=== PATIENT | male | born 1960 | race Caucasian/White ===

== ENCOUNTER → 2022-07-02 | Outpatient (CLI) | payer OTHER | END | disposition home or self-care (01) | LOC: LAB 09:50 → LAB SHORT 09:50 | DX: L08.9 Local infection of the skin and subcutaneous tissue, unspecified (principal) | CPT/HCPCS: 87070; 87075; 87147; 87205 ==

== ENCOUNTER 2024-05-22 03:10 | Inpatient (IN) | payer OTHER ==
[2024-05-22] VITALS (41 sets, daily range): BP systolic 71–99; BP diastolic 51–78
[~2024-05-22] VITALS: Ht 167.6 cm; Wt 62.5 kg
[2024-05-22] MEDS ORDERED: Ipratropium/Albuterol SulF 2.5-0.5MG/3 ML Amp INH PRN (03:55)
[2024-05-22 04:04] LABS: Hematocrit 40.6 % (37.0-53.0); Hemoglobin 13.5 g/dL (13.5-17.5); Mean Corpuscular HGB 29.3 pg (26.0-34.0); Mean Corpuscular HGB Conc 33.3 g/dL (31.5-36.5); Mean Corpuscular Volume 88 fL (80-100); Mean Platelet Volume 10.1 fL (9.1-12.4); NRBC ABSOLUTE 0.02 K/mm3 (0.00-0.02); NRBC Auto 0.1 /100 WBC (0.0-0.2); Platelet Count 331 K/mm3 (150-400); RDW Coefficient Variation 14.5 % (11.7-14.2); RDW Standard Deviation 46.3 fL (35.1-46.3); White Blood Cell Count 29.56 K/mm3 (4.00-11.30)
[2024-05-22] MEDS ORDERED: NS 1,000 ML IV SCH ×2 (04:15→15:40)
[2024-05-22 04:19] LABS: Albumin, Blood 2.2 g/dL (3.4-5.0); Albumin/Globulin Ratio 0.4 (0.8-1.8); Bilirubin, Total 0.8 mg/dL (0.1-1.0); Bun/Creatinine Ratio 23.9 (12.0-20.0); Calcium, Blood 9.3 mg/dL (8.5-10.1); Creatinine, Blood 2.18 mg/dL (0.60-1.20); Globulin, Blood 4.9 g/dL (2.2-4.0); Potassium, Blood 3.5 mmol/L (3.5-5.5); Total Protein, Blood 7.1 g/dL (6.4-8.2)
[2024-05-22 04:24] LABS: BAND PERCENT MAN 34 % (0-8); BASOPHILS PERCENT MAN 0 % (0-2); EOSINOPHILS ABSOLUTE MAN 0.29 K/mm3 (0.00-0.68); EOSINOPHILS PERCENT MAN 1 % (0-6); LYMPHOCYTES ABSOLUTE MAN 1.47 K/mm3 (0.84-5.20); LYMPHOCYTES PERCENT MAN 5 % (21-46); METAMYELOCYTE ABSOLUTE MAN 0.29 K/mm3 (0.00-0.00); METAMYELOCYTE PERCENT MAN 1 % (0-0); MONOCYTES ABSOLUTE MAN 2.36 K/mm3 (0.16-1.47); MONOCYTES PERCENT MAN 8 % (4-13); MYELOCYTE ABSOLUTE MAN 0.29 K/mm3 (0.00-0.00); MYELOCYTE PERCENT MAN 1 % (0-0); NEUTROPHILS ABSOLUTE MAN 24.83 K/mm3 (1.96-9.15); SEG NEUTROPHILS PERCENT MAN 50 % (41-73); TOTAL CELLS COUNTED 100
[2024-05-22] MEDS ORDERED: Cefepime HCl 1,000 MG in NS 100 ML IV ONE (04:35)
[2024-05-22] MEDS ORDERED: Vancomycin HCL 1,500 MG in NS 250 ML IV ONE (04:50)
[2024-05-22] MEDS ORDERED: NS 1,000 ML IV ONE (04:55)
[2024-05-22] MEDS ORDERED: FLU VACC TS2024-25(6MOS UP)/PF 45 MCG/0.5 ML SYRINGE IM ONE (04:55)
[2024-05-22] MEDS ORDERED: Ondansetron HCl 2 MG / ML 2ML Vial IV PRN (04:55)
[2024-05-22 04:58] LABS: Base Excess Venous -0.6 mmol/L; Bicarbonate Venous 23.3 mmol/L (24.0-30.0); PCO2 Venous 47.6 mmHg (38-42); pH Blood Venous 7.33 (7.34-7.37)
[2024-05-22 05:32] LABS: Influenza A, PCR NEGATIVE (NEGATIVE); Influenza B, PCR NEGATIVE (NEGATIVE); Resp Syncytial Virus, PCR NEGATIVE (NEGATIVE); SARS-Cov-2 (COVID-19) PCR, MMC NEGATIVE (NEGATIVE)
[2024-05-22] MEDS ORDERED: Enoxaparin 30 MG/0.3 ML SYR SC SCH (09:00)
[2024-05-22 09:21] LABS: Anion Gap 12 mmol/L (3-11); Blood Urea Nitrogen 57 mg/dL (8-24); Bun/Creatinine Ratio 32.8 (12.0-20.0); CO2, Blood 23 mmol/L (21-32); Calcium, Blood 8.6 mg/dL (8.5-10.1); Chloride, Blood 101 mmol/L (98-108); Creatinine, Blood 1.74 mg/dL (0.60-1.20); Glomerular Filtration Rate 44 (60-); Glucose, Blood 133 mg/dL (70-99); Phosphorus, Blood 3.8 mg/dL (2.5-4.9); Potassium, Blood 3.8 mmol/L (3.5-5.5); Sodium, Blood 132 mmol/L (136-145)
[2024-05-22] MEDS ORDERED: Ipratropium/Albuterol SulF 2.5-0.5MG/3 ML Amp INH SCH (11:30)
[2024-05-22] MEDS ORDERED: Albuterol 2.5 MG/3 ML VIAL INH PRN (11:30)
[2024-05-22] MEDS ORDERED: Lidocaine 4% 1 Patch TOP SCH (11:35)
[2024-05-22] MEDS ORDERED: Acetaminophen 325 MG TABLET PO PRN (11:50)
[2024-05-22] MEDS ORDERED: MetroNIDAZOLE 500MG/NS 100 ml 100 ML IV SCH (14:00)
[2024-05-22 15:00] LABS: Source, Urine Clean Catch
[2024-05-22 15:04] LABS: Appearance, Urine Hazy (Clear); Bilirubin, Urine Neg (Neg); Blood, Urine 3+ (Neg); Color, Urine Yellow (P-Yellow); Glucose Qualitative, Urine Neg (Neg); Ketones, Urine Neg (Neg); Leukocyte Esterase, Urine Neg (Neg); Nitrite, Urine Neg (Neg); Protein, Urine 2+ (Neg); Specific Gravity, Urine 1.015 (1.003-1.022); Urobilinogen, Urine NORM (Normal)
[2024-05-22 15:12] LABS: Amorphous Light (0-Heavy)
[2024-05-22 15:13] LABS: Bacteria Rare /hpf; Red Blood Cells, Urine 0-2 /hpf (0-2); Squamous Epithelial Cells Not Seen /hpf (Few); White Blood Cells, Urine 0-2 /hpf (0-5)
[2024-05-22 15:20] LABS: U Amphetamine Screen DETECTED; U Barbituate Screen Not Detected; U Benzodiazapine Screen Not Detected; U Buprenorphine Screen Not Detected; U Cannabinoids Screen DETECTED; U Cocaine Screen Not Detected; U Methadone Screen Not Detected; U Methamphetamine Screen DETECTED; U Opiates Screen Not Detected; U Oxycodone Screen Not Detected; U Phencyclidine Screen Not Detected
[2024-05-22] MEDS ORDERED: OxyCODONE HCL 5 MG TAB PO PRN (17:40)
--- NOTE | 2024-05-22 18:03 | NUR ---
DAY SHIFT SUMMARY PT HAS REMAINED ALERT AND ORIENTED THIS SHIFT COMMUNICATING APPROPRIATELY W STAFF. PT WAS TOLERATING SPO2 >92% ON 5L NC BUT WAS TRANSITIONED TO AIRVO 30L 45% FIO2 BY RT FOR INCREASED WOB. BP'S HAVE REMAINED SOFT ALL SHIFT BUT STABLE MAPS >65. MONITOR SHOWING SR/ST 90'S-100'S. PT REPORTING MODERATE TO SEVERE PLEURITIC PAIN ON L SIDE T/O THE SHIFT AND WAS GIVEN LIDOCAINE PATCH, TYLENOL AND OXYCODONE W GOOD RELIEF. LS REMAIN COARSE ON LEFT SIDE. PT HAS NS INFUSING AT 100 ML/HR. PT TOLERATING PO INTAKE WELL. PT VOIDING WELL, SEE I&O'S FOR DETAILS. PT WAS UNABLE TO PRODUCE A SPUTUM SAMPLE THIS SHIFT. WILL REPORT TO ONCOMING RN.
--- NOTE | 2024-05-22 20:11 | NUR ---
ASSUMPTION OF CARE ASSUMED CARE OF PATIENT AT 1900, BEDSIDE SHIFT REPORT RECEIVED FROM VALERIE RN. PT SITTING UP AT EDGE OF BED, ASSISTED PATIENT TO RECLINER, AMBULATES WELL IN ROOM WITH SBA. PT ALERT AND ORIENTED X4, ANSWERS QUESTIONS APPROPRIATELY, VOICE SOFT, FOLLOWS DIRECTION WHEN PROMPTED AND IS ABLE TO MAKE HIS NEEDS KNOWN. PT MOVES EXTREMITIES EQUALLY BILATERALLY. HR 90'S SINUS, BP SOFT, SBP 80-90'S, MAP >65. PT DENIES CP/PRESSURE. PT ON AIRVO 30L 45%, OXYGEN SATURATION >95%. PT COMPLAINING OF PAIN IN HIS LEFT FLANK/BACK, TENDER ON PALPATION, PT ALSO STATES IT IS PAINFUL WHEN HE TAKES A BREATH OR COUGHS. PT ALSO COMPLAINING OF PAIN IN HIS NECK WHICH HE BELEIVES IS MUSCLE PAIN FROM PREVIOUS WORK OF BREATHING. ABDOMEN SOFT, TENDER ON PALPATION, BOWEL TONES ACTIVE THROUGHOUT, PT DENIES N/V TOLERATING PO INTAKE WELL. PT USES URINAL TO VOID. PIV IN PLACE TO RAC AND LAC, NS INFUSING AT 100MLS/HR. CALL LIGHT WITHIN REACH, CARE CONTINUES.
[2024-05-22] MEDS ORDERED: Cefepime HCl 1,000 MG in NS 100 ML IV SCH (21:00)
[2024-05-22 21:41] LABS: Vancomycin, Random 16.7 ug/mL
[2024-05-22] MEDS ORDERED: Vancomycin HCL 750 MG in NS 250 ML IV SCH (22:00)
[2024-05-23] VITALS (90 sets, daily range): BP systolic 65–126; BP diastolic 24–96
[2024-05-23] MEDS ORDERED: OxyCODONE HCL 5 MG TAB PO PRN (01:45)
[2024-05-23 03:25] LABS: Mean Corpuscular HGB 29.2 pg (26.0-34.0); Mean Corpuscular HGB Conc 33.3 g/dL (31.5-36.5); Mean Corpuscular Volume 88 fL (80-100); Mean Platelet Volume 9.9 fL (9.1-12.4); NRBC ABSOLUTE 0.06 K/mm3 (0.00-0.02); NRBC Auto 0.3 /100 WBC (0.0-0.2); Platelet Count 347 K/mm3 (150-400); RDW Coefficient Variation 14.8 % (11.7-14.2); RDW Standard Deviation 47.6 fL (35.1-46.3); Red Blood Cell Count 4.45 M/mm3 (4.30-5.90); White Blood Cell Count 23.95 K/mm3 (4.00-11.30)
[2024-05-23 03:46] LABS: BAND PERCENT MAN 31 % (0-8); BASOPHILS PERCENT MAN 0 % (0-2); EOSINOPHILS PERCENT MAN 0 % (0-6); LYMPHOCYTES ABSOLUTE MAN 0.23 K/mm3 (0.84-5.20); LYMPHOCYTES PERCENT MAN 1 % (21-46); METAMYELOCYTE ABSOLUTE MAN 0.23 K/mm3 (0.00-0.00); METAMYELOCYTE PERCENT MAN 1 % (0-0); MONOCYTES ABSOLUTE MAN 1.43 K/mm3 (0.16-1.47); MONOCYTES PERCENT MAN 6 % (4-13); NEUTROPHILS ABSOLUTE MAN 22.03 K/mm3 (1.96-9.15); SEG NEUTROPHILS PERCENT MAN 61 % (41-73); TOTAL CELLS COUNTED 100
[2024-05-23 03:49] LABS: Magnesium, Blood 2.2 mg/dL (1.6-2.4)
[2024-05-23 03:53] LABS: Albumin, Blood 1.7 g/dL (3.4-5.0); Albumin/Globulin Ratio 0.4 (0.8-1.8); Bilirubin, Total 0.4 mg/dL (0.1-1.0); Bun/Creatinine Ratio 41.6 (12.0-20.0); Calcium, Blood 8.4 mg/dL (8.5-10.1); Creatinine, Blood 1.54 mg/dL (0.60-1.20); Globulin, Blood 4.5 g/dL (2.2-4.0); Phosphorus, Blood 4.1 mg/dL (2.5-4.9); Potassium, Blood 4.7 mmol/L (3.5-5.5); Total Protein, Blood 6.2 g/dL (6.4-8.2)
--- NOTE | 2024-05-23 05:55 | NUR ---
SHIFT SUMMARY NO ACUTE CHANGES THIS SHIFT. PT ALTERNATING BETWEEN BED AND RECLINER THROUGHOUT THE SHIFT. PT SLEEPING BUT AROUSABLE TO VERBAL STIMULI, ORIENTED X4. PT VOICE SOFT. PT FOLLOWS DIRECTION WHEN PROMPTED AND IS ABLE TO MAKE HIS NEEDS KNOWN. PT MOVES EXTREMITIES EQUALLY BILATERALLY, AMBULATES IN THE ROOM WITH SBA. PT COMPLAINING OF PAIN TO THE LEFT SIDE, FLANK AND LEFT BACK. PT STATES THE PAIN IS WORSE WHEN COUGHING AND BREATHING, MEDICATED PER EMAR WITH LITTLE EFFECT, PROVIDER AWARE. HR 100-110'S SINUS, BP SOFT, SBP 80-110'S, MAP >65. PT DENIES CP/PRESSURE. ABDOMEN SOFT, BOWEL TONES ACTIVE THROUGHOUT, PT DENIES N/V. PT USES URINAL TO VOID. PIV IN PLACE TO RAC AND LAC SL. BED IN LOWEST POSITION, CALL LIGHT WITHIN REACH, CARE CONTINUES.
[2024-05-23] MEDS ORDERED: Cefepime HCl 1,000 MG in NS 100 ML IV SCH (08:30)
[2024-05-23 09:12] LABS: Bun/Creatinine Ratio 47.9 (12.0-20.0); Calcium, Blood 8.9 mg/dL (8.5-10.1); Creatinine, Blood 1.44 mg/dL (0.60-1.20); Potassium, Blood 4.9 mmol/L (3.5-5.5)
[2024-05-23] MEDS ORDERED: Aspirin 81 MG Chew PO STA (11:27)
[2024-05-23] MEDS ORDERED: Metoprolol Tartrate 1 MG/ML 5 ML VIAL IV SCH (11:40)
[2024-05-23] MEDS ORDERED: Atorvastatin 40 MG Tab PO SCH (12:00)
[2024-05-23] MEDS ORDERED: Colchicine 0.6 MG TAB PO ONE (12:10)
[2024-05-23 12:33] LABS: Anti-Xa UFH, PHA Monitoring <0.10 IU/mL; International Normalized Ratio 1.02; Prothrombin Time Results 10.9 Sec (9.7-11.5)
[2024-05-23] MEDS ORDERED: Heparin Sodium 5000 Units/ML 1ML MDV IV ONE ×2 (12:40→21:45)
[2024-05-23] MEDS ORDERED: Heparin Sodium,Porcine/0.5 NS 500 ML IV SCH (12:40)
[2024-05-23 13:04] LABS: Anion Gap 14 mmol/L (3-11); Blood Urea Nitrogen 70 mg/dL (8-24); Bun/Creatinine Ratio 51.5 (12.0-20.0); C-Reactive Protein, High Sens. > 190.000 mg/dL (0.000-3.000); CO2, Blood 21 mmol/L (21-32); Calcium, Blood 8.7 mg/dL (8.5-10.1); Chloride, Blood 102 mmol/L (98-108); Creatinine, Blood 1.36 mg/dL (0.60-1.20); Glomerular Filtration Rate 59 (60-); Glucose, Blood 137 mg/dL (70-99); Potassium, Blood 4.9 mmol/L (3.5-5.5); Sodium, Blood 132 mmol/L (136-145)
[2024-05-23] MEDS ORDERED: FentaNYL Citrate 50 MCG/ML 2 ML Injection IV PRN (13:30)
--- NOTE | 2024-05-23 14:04 | NUR ---
Pt's s/o Imelda current phone number is [phone]. She is on her way to the hospital to speak with Dr. Daley. Pt's sister Che is LUL, phone number [phone]
--- NOTE | 2024-05-23 14:43 | NUR ---
Spoke with pt Jr at bedside. He states he's "scared shitless" and asks if he should be transferred to a "bigger hospital in [place]." Reassured him he is receiving the appropriate level of care right here. He does appear alert and oriented. He does not give a straight answer regarding code status, but he is able to state that his friend Imelda and sister Che would share in the decision-making responsibility if he became unable to make his own decisions. Also spoke with pt's sister Che and friend Imelda who are in agreement that they would be comfortable making decisions together if the patient were unable. Plan to see patient again in 2 days.
--- NOTE | 2024-05-23 16:45 | NUR ---
phone call update A person stated he was patients son "William" and wanted to speak to the patient. This RN stated that patient is not taking phone calls because he can't talk and breath very well. Person on the phone pushed a little then changed his tone aggressively and stated his real name was "Skateboard" and told me to not "fuck with this nayely". and that we are doing a great job but don't fuck with him." Then he hung up.
--- NOTE | 2024-05-23 17:21 | NUR ---
SHIFT SUMMARY PATIENT IS A&OX4, APPROPRIATE AND PLEASANT. VITALS WERE ALL STABLE WITH THE EXCEPTION OF O2 AND ST ELEVATION, PATIENT ST WAS ELEVATED IN 3 LEADS: I, II, & AVR HOPPER OPERATOR ORDERED EKG AND CONSULTED CARDIOLOGY , CARDIAC WORKUP LABS WERE SENT, ASPARIN CHEWABLE GIVEN, WELL SEVERAL OTHER MEDICATIONS SEE EMAR, PATIENT IS IN A LOT OF LEFT FLANK PAIN WHEN MOVING COUGHING OR DEEP BREATHING PRN PAIN MEDICATIONS GIVEN SEE EMAR, , LOW ACTIVITY TOLERANCE, PALLATIVE CARE WAS CONSULTED NEXT OF KIN IS SISTER HARITHA, & ROOMMATE CRISTA,
--- NOTE | 2024-05-23 20:15 | NUR ---
START OF SHIFT PT RESTING IN BED ON AIRVO WITH SETTINGS 40/45. PT HR ST IN 90-100'S WITH SPO2 GREATER THAN 90%. PT COMPLAINS OF PAIN WITH DEEP BREATHS. HEPARIN GTT RUNNING AT 15U/KG/HR. WILL CONTINUE TO MONITOR.
[2024-05-23] MEDS ORDERED: Colchicine 0.6 MG TAB PO SCH (21:00)
[2024-05-23] MEDS ORDERED: Metoprolol Tartrate 25 MG Tab PO SCH (21:00)
[2024-05-23 21:27] LABS: Vancomycin, Trough 12.7 ug/mL (5.0-10.0)
[2024-05-23] MEDS ORDERED: Dose Adjust by Pharmacy XX STA (21:43)
[2024-05-24] VITALS (44 sets, daily range): BP systolic 85–145; BP diastolic 60–101
[2024-05-24 04:16] LABS: Hematocrit 37.2 % (37.0-53.0); Hemoglobin 12.5 g/dL (13.5-17.5); Mean Corpuscular HGB 29.1 pg (26.0-34.0); Mean Corpuscular HGB Conc 33.6 g/dL (31.5-36.5); Mean Corpuscular Volume 87 fL (80-100); Mean Platelet Volume 10.5 fL (9.1-12.4); NRBC ABSOLUTE 0.07 K/mm3 (0.00-0.02); NRBC Auto 0.2 /100 WBC (0.0-0.2); Platelet Count 319 K/mm3 (150-400); RDW Coefficient Variation 15.5 % (11.7-14.2); RDW Standard Deviation 49.3 fL (35.1-46.3); Red Blood Cell Count 4.29 M/mm3 (4.30-5.90); White Blood Cell Count 29.44 K/mm3 (4.00-11.30)
[2024-05-24 04:35] LABS: Anti-Xa UFH, PHA Monitoring <0.10 IU/mL
--- NOTE | 2024-05-24 04:40 | NUR ---
SHIFT SUMMARY NO NEW ACUTE EVENTS OVER NIGHT. PT REMAINS ON AIRVO 30L40% FOR MAJORITY OF NIGHT. PT HAD MANY PRODUCTIVE COUGHS W/ EDUCATION GIVEN ON SELF SUCTIONING AND INSENTIVE SPIROMETER. PT COMPLAINS OF PAIN IN THE LEFT LOWER RIBS THAT IS EFFECTIVELY MEDICALLY TREATED WITH MEDS ON EMAR.
[2024-05-24] MEDS ORDERED: Dose Adjust by Pharmacy XX STA (04:59)
[2024-05-24] MEDS ORDERED: Heparin Sodium 5000 Units/ML 1ML MDV IV ONE (05:00)
[2024-05-24 05:09] LABS: Albumin, Blood 1.6 g/dL (3.4-5.0); Albumin/Globulin Ratio 0.4 (0.8-1.8); Bilirubin, Total 0.6 mg/dL (0.1-1.0); Calcium, Blood 8.7 mg/dL (8.5-10.1); Creatinine, Blood 1.09 mg/dL (0.60-1.20); Globulin, Blood 4.5 g/dL (2.2-4.0); Potassium, Blood 4.7 mmol/L (3.5-5.5); Total Protein, Blood 6.1 g/dL (6.4-8.2)
[2024-05-24 05:53] LABS: BAND PERCENT MAN 29 % (0-8); BASOPHILS PERCENT MAN 0 % (0-2); EOSINOPHILS PERCENT MAN 0 % (0-6); LYMPHOCYTES ABSOLUTE MAN 0.58 K/mm3 (0.84-5.20); LYMPHOCYTES PERCENT MAN 2 % (21-46); METAMYELOCYTE ABSOLUTE MAN 0.29 K/mm3 (0.00-0.00); METAMYELOCYTE PERCENT MAN 1 % (0-0); MONOCYTES ABSOLUTE MAN 0.88 K/mm3 (0.16-1.47); MONOCYTES PERCENT MAN 3 % (4-13); MYELOCYTE ABSOLUTE MAN 0.88 K/mm3 (0.00-0.00); MYELOCYTE PERCENT MAN 3 % (0-0); NEUTROPHILS ABSOLUTE MAN 26.79 K/mm3 (1.96-9.15); SEG NEUTROPHILS PERCENT MAN 62 % (41-73); TOTAL CELLS COUNTED 100
[2024-05-24] MEDS ORDERED: Aspirin 325 MG Tab PO SCH ×2 (08:00→09:00)
[2024-05-24] MEDS ORDERED: Colchicine 0.6 MG TAB PO SCH (09:00)
[2024-05-24] MEDS ORDERED: Clindamycin 900mg in D5W 50ML 50 ML IV SCH (10:00)
[2024-05-24] MEDS ORDERED: PENICILLIN POTASSIUM IV SCH (11:00)
[2024-05-24] MEDS ORDERED: NS IV SCH (11:00)
[2024-05-24 13:16] LABS: Vancomycin, Random 12.2 ug/mL
[2024-05-24] MEDS ORDERED: Vancomycin HCL 750 MG in NS 250 ML IV SCH (14:00)
[2024-05-24] MEDS ORDERED: Polyethylene Glycol 3350 17 gm PO SCH (14:15)
[2024-05-24] MEDS ORDERED: Docusate Sodium 100 MG Cap PO SCH (14:15)
--- NOTE | 2024-05-24 16:17 | NUR ---
DR. JOEL Webb RN CONSENT SIGNED BEDSIDE THORECENTESIS TIME OUT DONE @1615 CORRECT PATIENT, PROCEDURE, & SITE CONFIRMED NUMBED @1611 640ML OF PLEURAL FLUID REMOVED, LEFT PLEURAL FLUIS SEND TO LAB PROCEDURE END TIME 1156
[2024-05-24 17:42] LABS: Automated BF WBC Count 14.994 K/mm3 (0-999); Body Fluid WBC Count 14994 /mm3 (0-999); RBC Count, Body Fluid 10000 /mm3 (0-0)
[2024-05-24 17:43] LABS: Appearance, Body Fluid Cloudy (Clear); Color, Body Fluid Amber (None-Yellow)
[2024-05-24 18:02] LABS: Albumin, Body Fluid 1.3 g/dL; Glucose, Body Fluid 3 mg/dL
[2024-05-24 18:06] LABS: pH, Body Fluid 7.9
[2024-05-24 18:09] LABS: Lactate Dehydrogenase, Body Fl 2924 U/L; Protein, Body Fluid 3.8 g/dL
[2024-05-24 18:29] LABS: Total Cell Count, Body Fluid 100
--- NOTE | 2024-05-24 18:43 | NUR ---
PATIENT WAS A&O X4 APPROPRIATE AND KIND, ABX WERE ADJUSTED TODAY, 650ML REMOVED FROM LEFT LUNG IN THORACENTESIS WITH JOSE OSEI SENT TO LAB FOR TESTING, PT ON AIRVO, PATIENT APPETITE IS DECREASED BUT DRANK 2 ENSURE, WILL BE NPO AT MIDNIGHT, DR ORDERS TO HOLD ALL BLOOD THINNERS, NEEDS AM EKG PER CARDIOLOGY WILL GET BRONC AND BIOPSY TOMORROW
--- NOTE | 2024-05-24 20:04 | NUR ---
START OF SHIFT THIS RN ASSUMED CARE AT APPROXIMATELY 1900. PT STOOD AND PIVOT FROM CHAIR INTO BED. PT REPORTS 4/10PAIN IN THE L LOWER RIB AREA. PT ON 30L 60% ON AIRVO WITH SAT GREATER THAN 95%. PT HAS NO FURTHER CONCERNS AT THIS TIME. WILL CONTINUE PLAN OF CARE.
[2024-05-25] VITALS (45 sets, daily range): BP systolic 68–148; BP diastolic 48–90
[2024-05-25 03:45] LABS: Hematocrit 36.1 % (37.0-53.0); Mean Corpuscular HGB 29.1 pg (26.0-34.0); Mean Corpuscular HGB Conc 33.2 g/dL (31.5-36.5); Mean Corpuscular Volume 88 fL (80-100); Mean Platelet Volume 10.1 fL (9.1-12.4); NRBC ABSOLUTE 0.07 K/mm3 (0.00-0.02); NRBC Auto 0.2 /100 WBC (0.0-0.2); Platelet Count 329 K/mm3 (150-400); RDW Standard Deviation 51.4 fL (35.1-46.3); Red Blood Cell Count 4.12 M/mm3 (4.30-5.90); White Blood Cell Count 32.43 K/mm3 (4.00-11.30)
[2024-05-25 04:08] LABS: Albumin, Blood 1.5 g/dL (3.4-5.0); Albumin/Globulin Ratio 0.3 (0.8-1.8); Bilirubin, Total 0.6 mg/dL (0.1-1.0); Bun/Creatinine Ratio 56.7 (12.0-20.0); Calcium, Blood 8.5 mg/dL (8.5-10.1); Creatinine, Blood 0.99 mg/dL (0.60-1.20); Globulin, Blood 4.4 g/dL (2.2-4.0); Magnesium, Blood 2.6 mg/dL (1.6-2.4); Potassium, Blood 4.4 mmol/L (3.5-5.5); Total Protein, Blood 5.9 g/dL (6.4-8.2)
--- NOTE | 2024-05-25 04:23 | NUR ---
SHIFT SUMMARY PT NOW ON 1L NC SITTING IN THE CHAIR. PT COMPLAINED OF DYSPNEA WITH WHEEZE AROUND 0200. PT REMAINS ON 1L NC AND RECIEVED A BREATHING TREATMENT. NO OTHER ACUTE EVENTS OVER NIGHT. WILL CONTINUE PLAN OF CARE.
[2024-05-25 04:30] LABS: BAND PERCENT MAN 4 % (0-8); BASOPHILS ABSOLUTE MAN 0.32 K/mm3 (0.00-0.23); BASOPHILS PERCENT MAN 1 % (0-2); EOSINOPHILS PERCENT MAN 0 % (0-6); LYMPHOCYTES ABSOLUTE MAN 0.64 K/mm3 (0.84-5.20); LYMPHOCYTES PERCENT MAN 2 % (21-46); METAMYELOCYTE ABSOLUTE MAN 0.64 K/mm3 (0.00-0.00); METAMYELOCYTE PERCENT MAN 2 % (0-0); MONOCYTES ABSOLUTE MAN 0.97 K/mm3 (0.16-1.47); MONOCYTES PERCENT MAN 3 % (4-13); MYELOCYTE ABSOLUTE MAN 1.94 K/mm3 (0.00-0.00); MYELOCYTE PERCENT MAN 6 % (0-0); NEUTROPHILS ABSOLUTE MAN 27.88 K/mm3 (1.96-9.15); SEG NEUTROPHILS PERCENT MAN 82 % (41-73); TOTAL CELLS COUNTED 100
[2024-05-25] MEDS ORDERED: Lidocaine HCl 4% 5 ML SDA ONE (08:46)
[2024-05-25] MEDS ORDERED: Aspirin 325 MG Tab PO SCH (09:00)
[2024-05-25] MEDS ORDERED: Colchicine 0.6 MG TAB PO SCH (09:00)
[2024-05-25] MEDS ORDERED: Lidocaine 2% 5 ML SDV ONE (09:09)
[2024-05-25] MEDS ORDERED: EpiNEPhrine 1 MG/1 ML 1ML Vial ONE (09:09)
[2024-05-25] MEDS ORDERED: Lidocaine 2% Jelly Uro-Jet ONE (09:09)
[2024-05-25] MEDS ORDERED: propofoL 20 ML IV ONE (10:08)
[2024-05-25] MEDS ORDERED: Midazolam HCl 1MG / ML 2ML Vial ONE (10:09)
--- NOTE | 2024-05-25 10:58 | NUR ---
05/25/24 1059 Cirea Funes CONFIRMED AND REVIEWED H&P, MEDCICATIONS, ALLERGIES, MEDICAL HISTORY, RESPIRATORY HISTORY, VITAL SIGNS, 3-LEAD EKG, CONSENTS, AND PHYSICIAN ORDERS. PATIENT CONFIRMS NPO STATUS AND AGREES WITH SCHEDULED PROCEDURE. MONITOR INTACT WITH CONTINUOUS PULSE OXIMETRY, CAPNOGRAPHY, 3-LEAD EKG, INTERMITTENT BP. SUPPLEMENTAL O2 TO BE TITRATED THROUGHOUT PROCEDURE TO MAINTAIN O2 SATURATION ABOVE 90%. PATIENT DETERMINED TO BE ASA APPROPRIATE FOR PROPOFOL SEDATION PRIOR TO START OF PROCEDURE BY .MALLAMPATI CLASS 2 AIRWAY: COMPLETE VISUALIZATION OF THE UVULA.
--- NOTE | 2024-05-25 14:36 | NUR ---
Pt's sister Che is coming for a visit today. She is now listed as NOK, and will be primary contact for him. She has not spoken to him today, as his phone is out of service at this time. She is aware pt had a bronchoscopy today, and biopsy performed. Unsure how long until results will arrive, but patient and sister aware.
--- NOTE | 2024-05-25 16:07 | NUR ---
Pt's sister Che at bedside. The patient states he does have 2 adult children along with a step brother and step sister. However, he is adamant and clear that he would like Che to be his healthcare POA. The patient is also currently filling out advanced directive.
--- NOTE | 2024-05-25 17:55 | NUR ---
SHIFT NOTE PT HAD BEDSIDE BRONCH THIS AM - SEE SURGICAL NOTE. 5 BIOPSIES SENT. NO ACUTE CHANGES DURING REST OF THE SHIFT. SISTER FROM [place] ARRIVED AND IS AT BEDSIDE. PATIENT AND SISTER REQUESTING PAPERWORK FOR POA, PROVIDED BY PALLIATIVE CARE. NAMES/NUMBERS OF ALL SIBLINGS OBTAINED AT THE REQUEST OF DR. CHAVEZ, PLACED IN PATIENT'S PAPER CHART AND SEPERATE NOTE MADE DOCUMENTING NAMES/NUMBERS.
--- NOTE | 2024-05-25 17:59 | NUR ---
SIB[facility]ING CONTACT INFO HARITHA CARROLL - [phone] LYSSA GOSS - [phone] LOGAN HAINES - [phone]
[2024-05-26] VITALS (21 sets, daily range): BP systolic 113–160; BP diastolic 66–110
[2024-05-26 01:00] LABS: Hematocrit 36.2 % (37.0-53.0); Hemoglobin 12.2 g/dL (13.5-17.5); Mean Corpuscular HGB 29.3 pg (26.0-34.0); Mean Corpuscular HGB Conc 33.7 g/dL (31.5-36.5); Mean Corpuscular Volume 87 fL (80-100); NRBC ABSOLUTE 0.09 K/mm3 (0.00-0.02); NRBC Auto 0.3 /100 WBC (0.0-0.2); Platelet Count 350 K/mm3 (150-400); RDW Standard Deviation 51.2 fL (35.1-46.3); Red Blood Cell Count 4.17 M/mm3 (4.30-5.90); White Blood Cell Count 34.87 K/mm3 (4.00-11.30)
[2024-05-26 01:16] LABS: Vancomycin, Trough 16.4 ug/mL (5.0-10.0)
[2024-05-26 01:27] LABS: Calcium, Blood 8.2 mg/dL (8.5-10.1); Creatinine, Blood 0.85 mg/dL (0.60-1.20); Magnesium, Blood 2.1 mg/dL (1.6-2.4); Potassium, Blood 4.2 mmol/L (3.5-5.5)
[2024-05-26 01:29] LABS: BAND PERCENT MAN 7 % (0-8); BASOPHILS PERCENT MAN 0 % (0-2); EOSINOPHILS PERCENT MAN 0 % (0-6); LYMPHOCYTES ABSOLUTE MAN 1.39 K/mm3 (0.84-5.20); LYMPHOCYTES PERCENT MAN 4 % (21-46); METAMYELOCYTE ABSOLUTE MAN 0.34 K/mm3 (0.00-0.00); METAMYELOCYTE PERCENT MAN 1 % (0-0); MONOCYTES ABSOLUTE MAN 0.69 K/mm3 (0.16-1.47); MONOCYTES PERCENT MAN 2 % (4-13); MYELOCYTE ABSOLUTE MAN 0.69 K/mm3 (0.00-0.00); MYELOCYTE PERCENT MAN 2 % (0-0); NEUTROPHILS ABSOLUTE MAN 31.73 K/mm3 (1.96-9.15); SEG NEUTROPHILS PERCENT MAN 84 % (41-73); TOTAL CELLS COUNTED 100
--- NOTE | 2024-05-26 05:55 | NUR ---
SHIFT SUMMARY PATIENT IS ALERT AND ORIENTED X4, MUMBLES AND FORGETFUL AT TIMES. SP02 97% ON 2L VIA NC, SMALL AMOUNT OF THICK ALEXIS SPUTUM. HR SR 90s, BP STABLE. COMPLAINING OF SOME CHEST DISCOMFORT LATER IN THE SHIFT, PATIENT SAYS UNCHANGED FROM THE DAY, MEDICATED PER EMAR PRN. USES URINAL. BACK AND FORTH FROM BED TO RECLINER SEVERAL TIMES THROUGHOUT THE NIGHT. CALL LIGHT IN REACH
[2024-05-26] MEDS ORDERED: PENICILLIN POTASSIUM IV SCH (08:36)
[2024-05-26] MEDS ORDERED: DEXTROSE 5% IV SCH (08:36)
--- NOTE | 2024-05-26 11:33 | NUR ---
Pt and sister Che filled out AD naming Che as medical decision-maker in the event pt is unable. Will follow up with JUANITA this afternoon when Che returns.
[2024-05-26] MEDS ORDERED: Heparin Sodium 5000 Units/ML 1ML MDV SC SCH (12:00)
[2024-05-26] MEDS ORDERED: Sod Phosphate/Sod Biphosphate 132 ML BTL PR ONE (12:50)
[2024-05-26] MEDS ORDERED: Ipratropium/Albuterol SulF 2.5-0.5MG/3 ML Amp INH PRN (15:03)
[2024-05-26] MEDS ORDERED: Aspirin 325 MG Tab PO SCH (16:00)
[2024-05-26] MEDS ORDERED: Pantoprazole Sodium 40 MG Injection IV SCH (16:30)
--- NOTE | 2024-05-26 18:15 | NUR ---
Summary. Pt alert and oriented throughout shift. Up to chair for much of shift, family present and updated. No acute events this shift. VS stable. See chart for further details.
[2024-05-26] MEDS ORDERED: Melatonin 5 MG Tablet PO PRN (19:45)
[2024-05-26] MEDS ORDERED: Lactobacil 2-S.Thermo-Bifido 1 1 Cap PO SCH (21:00)
[2024-05-27] MEDS ORDERED: NS IV SCH
[2024-05-27] MEDS ORDERED: PENICILLIN POTASSIUM IV SCH
[2024-05-27 03:57] VITALS: BP 131/82
[2024-05-27 05:51] LABS: Magnesium, Blood 1.6 mg/dL (1.6-2.4)
--- NOTE | 2024-05-27 06:04 | NUR ---
SHIFT SUMMARY TRANSFERRED FROM ICU THIS SHIFT. PATIENT ALERT, ORIENTED x3-4. VERY SOFT SPOKEN. ABLE TO MAKE NEEDS KNOWN. PATIENT VERY RESTLESS DURING THE NIGHT. BP STABLE. ON 3-4L NC WITH SPO2 >90s. OCCASIONAL PRODUCTIVE COUGH, USING SUCTION INDEPENDENTLY. TELE READING SR 80s. USING URINAL AT BEDSIDE INDEPENDENTLY, DARK YELLOW URINE OUT. STANDBY ASSIST FROM BED TO CHAIR. NO OTHER SIGNIFICANT CHANGES. WILL REPORT TO DAY SHIFT RN.
[2024-05-27 07:33] LABS: Hemoglobin 11.6 g/dL (13.5-17.5); Mean Corpuscular HGB 29.1 pg (26.0-34.0); Mean Corpuscular HGB Conc 34.1 g/dL (31.5-36.5); Mean Corpuscular Volume 85 fL (80-100); Mean Platelet Volume 10.5 fL (9.1-12.4); NRBC ABSOLUTE 0.03 K/mm3 (0.00-0.02); NRBC Auto 0.1 /100 WBC (0.0-0.2); Platelet Count 405 K/mm3 (150-400); Red Blood Cell Count 3.99 M/mm3 (4.30-5.90); White Blood Cell Count 35.32 K/mm3 (4.00-11.30)
[2024-05-27 07:44] LABS: Albumin, Blood 1.4 g/dL (3.4-5.0); Albumin/Globulin Ratio 0.3 (0.8-1.8); Bilirubin, Total 0.7 mg/dL (0.1-1.0); Bun/Creatinine Ratio 25.6 (12.0-20.0); Calcium, Blood 7.6 mg/dL (8.5-10.1); Creatinine, Blood 0.78 mg/dL (0.60-1.20); Globulin, Blood 4.5 g/dL (2.2-4.0); Potassium, Blood 4.2 mmol/L (3.5-5.5); Total Protein, Blood 5.9 g/dL (6.4-8.2)
[2024-05-27 07:53] LABS: BAND PERCENT MAN 9 % (0-8); BASOPHILS PERCENT MAN 0 % (0-2); EOSINOPHILS ABSOLUTE MAN 0.35 K/mm3 (0.00-0.68); EOSINOPHILS PERCENT MAN 1 % (0-6); LYMPHOCYTES ABSOLUTE MAN 2.82 K/mm3 (0.84-5.20); LYMPHOCYTES PERCENT MAN 8 % (21-46); METAMYELOCYTE ABSOLUTE MAN 1.41 K/mm3 (0.00-0.00); METAMYELOCYTE PERCENT MAN 4 % (0-0); MONOCYTES ABSOLUTE MAN 2.47 K/mm3 (0.16-1.47); MONOCYTES PERCENT MAN 7 % (4-13); MYELOCYTE PERCENT MAN 2 % (0-0); NEUTROPHILS ABSOLUTE MAN 27.54 K/mm3 (1.96-9.15); SEG NEUTROPHILS PERCENT MAN 69 % (41-73); TOTAL CELLS COUNTED 100
[2024-05-27 08:54] VITALS: BP 167/99
--- NOTE | 2024-05-27 10:20 | NUR ---
AM NOTE: ASSUMED CARE OF PATIENT FROM NATY RN AT START OF SHIFT. PATIENT IS ALERT AND ORIENTED X4 AND ACTIVE IN HIS CARE. SATTING >92% ON 2 LITERS VIA NASAL CANNULA. IS ON TELE SHOWING SINUS WITH RATE IN 90'S. GAVE HIMSELF A SHOWER AND TOLERATED IT WELL. MD TO BEDSIDE AROUND 10:30AM TO GO OVER PATIENT AND GIVE PLAN MOVING FORWARD. THIS RN BROUGHT UP THE PATIENTS CONCERN OVER NOT GETTING ANY REST AND HAVING A LOT OF MEDICATIONS THROUGHOUT THE NIGHT. THIS RN MENTIONED GETTING SOMETHING STRONGER TO HELP HIM SLEEP. MD NOTIFIED PATIENT DIDN'T HAVE ANY EVENTS OVERNIGHT AND PLAN IS TO WAIT ON CULTURES TO RETURN TO SEE ABOUT TIMING MEDICATIONS THROUGHOUT HIS STAY.
[2024-05-27 10:58] VITALS: BP 159/82
[2024-05-27] MEDS ORDERED: TraZODone HCl 100 MG Tab PO PRN (12:50)
[2024-05-27 15:25] VITALS: BP 164/106
--- NOTE | 2024-05-27 15:40 | NUR ---
PATIENT WENT FOR A WALK AROUND THE UNIT. ROLLING OXYGEN ALONG WITH HIS IV POLES WENT ALONG. PATIENT TOLERATED IT WELL.
--- NOTE | 2024-05-27 15:54 | NUR ---
call placed to : call was placed to md webber regarding patients constant high blood pressure. this rn mentioned possibly adding a prn for control. stated she would take a look. at this time awaiting new orders.
[2024-05-27] MEDS ORDERED: HydrALAZINE HCl 20 MG / ML 1ML Vial IV PRN (16:00)
--- NOTE | 2024-05-27 16:40 | NUR ---
SHIFT SUMMARY: PATIENT IS ALERT AND ORIENTED X4 AND ACTIVE IN HIS CARE. IS ABLE TO MAKE NEEDS KNOWN AND USES CALL LIGHT APPROIRATELY. IS ON TELE SHOWING SINUS RYTHM WITH RATE IN 90'S. SATTING >92% ON 2 LITERS VIA NASAL CANNULA. PATIENT WENT FOR A WALK TODAY AND TOLERATED IT WELL. BLOOD PRESSURE WAS SLIGHTLY ELEVATED THROUGHOUT SHIFT AND SOME PRN'S ADDED TO EMAR IF SYSTOLIC IS OVER 180 PER EMAR. SOME SLEEPING AIDS WERE ALSO ADDED FOR LICENSE EXAMINER. PLAN IS TO CONTINUE IV ANTIBIOTICS. PATIENT HAD FAMILY AT BEDSIDE THROUGHOUT SHIFT THAT HELPED THE PATIENT WITH THINGS IN THE ROOM. PATIENT IS SBA TO MANAGE LINES/CHORDS. PATIENT WAS ABLE TO GET SOME REST TODAY AND SHOWERED SELF IN ROOM. NO EVENTS THROUGHOUT SHIFT. WILL CONTINUE TO MONITOR UNTIL LICENSE EXAMINER RN ASSUMES CARE.
[2024-05-27 19:34] VITALS: BP 148/93
[2024-05-27] MEDS ORDERED: Famotidine 10 MG/ML 2ML Vial IV SCH (21:00)
[2024-05-28] VITALS (8 sets, daily range): BP systolic 136–171; BP diastolic 75–97
[2024-05-28 04:54] LABS: Hematocrit 33.6 % (37.0-53.0); Hemoglobin 11.7 g/dL (13.5-17.5); Mean Corpuscular HGB 29.3 pg (26.0-34.0); Mean Corpuscular HGB Conc 34.8 g/dL (31.5-36.5); Mean Corpuscular Volume 84 fL (80-100); Mean Platelet Volume 10.2 fL (9.1-12.4); Platelet Count 428 K/mm3 (150-400); RDW Coefficient Variation 15.5 % (11.7-14.2); RDW Standard Deviation 47.4 fL (35.1-46.3); Red Blood Cell Count 3.99 M/mm3 (4.30-5.90); White Blood Cell Count 30.94 K/mm3 (4.00-11.30)
[2024-05-28 05:26] LABS: Albumin, Blood 1.4 g/dL (3.4-5.0); Albumin/Globulin Ratio 0.3 (0.8-1.8); Bilirubin, Total 0.4 mg/dL (0.1-1.0); Bun/Creatinine Ratio 23.3 (12.0-20.0); Calcium, Blood 7.8 mg/dL (8.5-10.1); Creatinine, Blood 0.82 mg/dL (0.60-1.20); Globulin, Blood 4.3 g/dL (2.2-4.0); Potassium, Blood 3.9 mmol/L (3.5-5.5); Total Protein, Blood 5.7 g/dL (6.4-8.2)
[2024-05-28 05:34] LABS: BAND PERCENT MAN 6 % (0-8); BASOPHILS PERCENT MAN 0 % (0-2); EOSINOPHILS PERCENT MAN 1 % (0-6); LYMPHOCYTES ABSOLUTE MAN 1.23 K/mm3 (0.84-5.20); LYMPHOCYTES PERCENT MAN 4 % (21-46); METAMYELOCYTE PERCENT MAN 1 % (0-0); MONOCYTES ABSOLUTE MAN 0.61 K/mm3 (0.16-1.47); MONOCYTES PERCENT MAN 2 % (4-13); MYELOCYTE ABSOLUTE MAN 1.54 K/mm3 (0.00-0.00); MYELOCYTE PERCENT MAN 5 % (0-0); NEUTROPHILS ABSOLUTE MAN 26.91 K/mm3 (1.96-9.15); SEG NEUTROPHILS PERCENT MAN 81 % (41-73); TOTAL CELLS COUNTED 100
--- NOTE | 2024-05-28 05:40 | NUR ---
SHIFT SUMMARY PATIENT ALERT, ORIENTED x4. ABLE TO MAKE NEEDS KNOWN TO STAFF. PATIENT ON 3-4L NC WITH SPO2 >90%. PATIENT TACHYPNEIC AT TIMES WITH EXERTION. TELE READING SR 80s. BP STABLE. PATIENT STANDBY ASSIST FROM BED TO CHAIR. PATIENT OCCASIONALLY RESTLESS DURING THE NIGHT. USING URINAL AT BEDSIDE, ADEQUATE OUTPUT. MEDICATED FOR INSOMNIA AND PAIN PER EMAR. NO OTHER CHANGES. WILL REPORT TO DAY SHIFT RN.
--- NOTE | 2024-05-28 12:36 | NUR ---
1015 ASSUMED CARE OF PATIENT. PT SITING IN CHAIR WITH HEAD ON BEDSIDE TABLE. RESP EVEN AND UNLABORED. PT STATES GENERALIZED BODY ACHES, DENIES SOB. LUNGS DIMINISHED THROUGHOUT. BANDAID DRY AND INTACT TLL POSTERIOR CHEST. PT DENIES ANY NEEDS AT THIS TIME
[2024-05-28] MEDS ORDERED: CefTRIAXone Sodium 2,000 MG in NS 100 ML IV SCH (15:00)
--- NOTE | 2024-05-28 17:14 | NUR ---
pt up to chair and bathroom with standby assist to manage lines.pt oriented and cooperative states he is tired of being here and hasnt gotten restful sleep in several days. plan possible discharge tomorrow if outpatient iv antibiotics can be arranged in infusion center. home health caregiver spoke with patient regarding infusions. pt with occ cough productive of clear to sl yellow secretions. pt suctions own secretions. pt reports frequent liquid stools which reports physician told him was likely from antibiotics
--- NOTE | 2024-05-28 18:27 | NUR ---
1809 CALLED TO ROOM BY PATIENT, PT REPEATING "SOMETHINGS NOT RIGHT, I DONT JUST FEEL RIGHT, I FEEL THINGS CLOSING IN ON ME." PT REPORTS GENERALIZED BODY ACHES, VS CHECKED, ROXICODONE GIVE. PT ASSISTED TO CHAIR, HAIM VALENZUELA RN IN TO EVALUATE PATIENT. VS RECHECKED. REASSURANCE GIVEN TO PATIENT, PT REMAINS IN CHAIR, CALL LIGHT IN REACH
--- NOTE | 2024-05-28 19:15 | NUR ---
PT RESTING IN BED VISITING WITH VISITOR, PT REPORTS FEELS CALMER THAN HE DID AND DECREASE IN PAIN AFTER ROXICODONE
[2024-05-29 00:16] VITALS: BP 150/92
[2024-05-29 01:39] LABS: Hematocrit 32.4 % (37.0-53.0); Hemoglobin 11.2 g/dL (13.5-17.5); Mean Corpuscular HGB 28.7 pg (26.0-34.0); Mean Corpuscular HGB Conc 34.6 g/dL (31.5-36.5); Mean Corpuscular Volume 83 fL (80-100); Mean Platelet Volume 10.2 fL (9.1-12.4); Platelet Count 517 K/mm3 (150-400); RDW Coefficient Variation 15.6 % (11.7-14.2); White Blood Cell Count 29.07 K/mm3 (4.00-11.30)
[2024-05-29 01:49] LABS: Alanine Aminotransfer (ALT/SGP 25 U/L (12-78); Albumin, Blood 1.4 g/dL (3.4-5.0); Albumin/Globulin Ratio 0.3 (0.8-1.8); Alk Phos 247 U/L (50-136); Anion Gap 9 mmol/L (3-11); Aspartate Aminotrans (AST/SGOT 42 U/L (12-37); Bilirubin, Total 0.3 mg/dL (0.1-1.0); Blood Urea Nitrogen 17 mg/dL (8-24); Bun/Creatinine Ratio 22.1 (12.0-20.0); CO2, Blood 26 mmol/L (21-32); Calcium, Blood 7.5 mg/dL (8.5-10.1); Chloride, Blood 103 mmol/L (98-108); Creatinine, Blood 0.77 mg/dL (0.60-1.20); Globulin, Blood 4.7 g/dL (2.2-4.0); Glomerular Filtration Rate 101 (60-); Glucose, Blood 147 mg/dL (70-99); Potassium, Blood 3.8 mmol/L (3.5-5.5); Sodium, Blood 134 mmol/L (136-145); Total Protein, Blood 6.1 g/dL (6.4-8.2); Vancomycin, Trough 10.1 ug/mL (5.0-10.0)
[2024-05-29 02:00] LABS: BAND PERCENT MAN 14 % (0-8); BASOPHILS ABSOLUTE MAN 0.29 K/mm3 (0.00-0.23); BASOPHILS PERCENT MAN 1 % (0-2); EOSINOPHILS ABSOLUTE MAN 0.58 K/mm3 (0.00-0.68); EOSINOPHILS PERCENT MAN 2 % (0-6); LYMPHOCYTES ABSOLUTE MAN 1.74 K/mm3 (0.84-5.20); LYMPHOCYTES PERCENT MAN 6 % (21-46); METAMYELOCYTE ABSOLUTE MAN 0.58 K/mm3 (0.00-0.00); METAMYELOCYTE PERCENT MAN 2 % (0-0); MONOCYTES ABSOLUTE MAN 1.45 K/mm3 (0.16-1.47); MONOCYTES PERCENT MAN 5 % (4-13); MYELOCYTE ABSOLUTE MAN 0.29 K/mm3 (0.00-0.00); MYELOCYTE PERCENT MAN 1 % (0-0); NEUTROPHILS ABSOLUTE MAN 24.12 K/mm3 (1.96-9.15); SEG NEUTROPHILS PERCENT MAN 69 % (41-73); TOTAL CELLS COUNTED 100
[2024-05-29] MEDS ORDERED: Vancomycin HCL 1,000 MG in NS 250 ML IV SCH (02:00)
[2024-05-29 03:42] VITALS: BP 151/89
--- NOTE | 2024-05-29 05:02 | NUR ---
PT REMAINS A&OX4. VSS ON 2L >92%. PT CONTINUES TO COUGH UP THICK CLEAR SPUTUM. PT GIVEN ABX PER JUL. ALONG WITH PRN PAIN MEDS ACCORDINGLY FOR PAIN. PT IND IN ROOM AND USING URINAL AT BEDSIDE WITH ADEQUATE OUTPUT. NO FURTHER QUESTIONS OR CONCERNS AT THIS TIME. CALL CORDON WITHIN REACH.
[2024-05-29] MEDS ORDERED: Aspirin 325 MG Tab PO SCH (06:00)
--- NOTE | 2024-05-29 08:00 | NUR ---
INITIAL ASSESSMENT: Patient is sitting on the edge of the bed after eating breakfast. He is alert and oriented x4. He denies pain at this time, he states he fell yesterday and has been having some left rib pain. HRR. LS DIM in the bases, biox is high 90s on RA, plan to take the patient for a walk to make sure he doesn't have exertional hypoxia. BT+, pt refused his stool softner this AM stating he has been, "pooping alot." He denies diarrhea. PPP. He has 1+ pitting edema to BLE. AM meds given with a sip of water. Patient denies other needs at this time. Dr. Arteaga and Dr. Kerns at the bedside, tentative plan for DC today.
[2024-05-29 08:07] VITALS: BP 144/92
[2024-05-29] MEDS ORDERED: Potassium Chloride 20 MEQ TabCR PO SCH (11:00)
[2024-05-29 11:59] VITALS: BP 154/79
[2024-05-29] MEDS ORDERED: LIPITOR80 MG PO (12:11)
[2024-05-29] MEDS ORDERED: ACET500 PO (12:11)
[2024-05-29] MEDS ORDERED: COLCHICINE0.6 MG PO (12:12)
[2024-05-29] MEDS ORDERED: CEFTRIAXONE2 G7 IV (12:12)
[2024-05-29] MEDS ORDERED: TRAZ100 PO (12:13)
[2024-05-29] MEDS ORDERED: PROBIOTIC1 EA13 PO (12:14)
[2024-05-29] MEDS ORDERED: BACTRIM DS TAB1 EAC6 PO (12:16)
[2024-05-29] MEDS ORDERED: METO25 PO (12:17)
[2024-05-29] MEDS ORDERED: TIOT18 INH (12:17)
[2024-05-29] MEDS ORDERED: CELE200 PO (12:18)
[2024-05-29] MEDS ORDERED: PROTONIX4010 PO (12:18)
[2024-05-29] MEDS ORDERED: CIPR500 PO (12:20)
[2024-05-29] MEDS ORDERED: METR500 PO (12:21)
--- NOTE | 2024-05-29 13:00 | NUR ---
DISCHARGE: Patient's friend at the bedside to give him a ride home, he will be staying with her for the next week or so. They both verbalize understanding of discharge instructions. Patient to home with friend via WC.
[2024-05-29] MEDS ORDERED: CefTRIAXone Sodium 2,000 MG in NS 100 ML IV SCH (15:00)
[2024-06-02] MEDS ORDERED: Aspirin 325 MG Tab PO SCH (09:00)
[2024-06-09] MEDS ORDERED: Aspirin 325 MG Tab PO SCH (09:00)
[2024-06-16] MEDS ORDERED: Aspirin 325 MG Tab PO SCH (09:00)
[2024-06-25] MEDS ORDERED: Aspirin 81 MG TabEC PO SCH (09:00)
== END 2024-05-29 12:48 | disposition home or self-care (01) | DRG 853 ==
LOC: ER 03:10 → ERHOLD 04:51 → ICUE 04:51 → PCU 05-26 22:34
PROVIDERS: Emergency Medicine; Internal Medicine; Internal Medicine Critical Care Medicine; Student in an Organized Health Care Education/Training Program; ADMIT Internal Medicine
PROC: 5A0935A Assistance with Respiratory Ventilation, Less than 24 Consecutive Hours, High Flow/Velocity Cannula (ICD-10-PCS; 2024-05-23)
PROC: 0W9B3ZZ Drainage of Left Pleural Cavity, Percutaneous Approach (ICD-10-PCS; principal; 2024-05-24)
PROC: 0BBG8ZX Excision of Left Upper Lung Lobe, Via Natural or Artificial Opening Endoscopic, Diagnostic (ICD-10-PCS; 2024-05-25)
DX: A40.0 Sepsis due to streptococcus, group A (principal); J15.212 Pneumonia due to Methicillin resistant Staphylococcus aureus; R65.21 Severe sepsis with septic shock; J96.01 Acute respiratory failure with hypoxia; J86.9 Pyothorax without fistula; N17.9 Acute kidney failure, unspecified; E87.20 Acidosis, unspecified; J44.0 Chronic obstructive pulmonary disease with (acute) lower respiratory infection; E87.1 Hypo-osmolality and hyponatremia; J90 Pleural effusion, not elsewhere classified; C34.92 Malignant neoplasm of unspecified part of left bronchus or lung; J98.11 Atelectasis; I30.9 Acute pericarditis, unspecified; F17.210 Nicotine dependence, cigarettes, uncomplicated; E86.0 Dehydration; R07.89 Other chest pain; B95.0 Streptococcus, group A, as the cause of diseases classified elsewhere; F15.10 Other stimulant abuse, uncomplicated; R10.13 Epigastric pain; F12.10 Cannabis abuse, uncomplicated; J43.9 Emphysema, unspecified; Z99.81 Dependence on supplemental oxygen; T39.015A Adverse effect of aspirin, initial encounter
CPT/HCPCS: 0241U; 36415; 71045; 71260; 76770; 80048; 80053; 80069; 80202; 81001; 82042; 82330; 82803; 82945; 83605; 83615; 83735; 83880; 83986; 84100; 84145; 84157; 84484; 85025; 85520; 85610; 85730; 86141; 87040; 87070; 87075; 87077; 87147; 87186; 87205; 88108; 88305; 88341; 88342; 89051; 93005; 93010; 93306; 94640; 94664; 94760; 94762; 99285-25; A9270; J0171; J0692; J0696; J1644; J1650; J2003; J2250; J2470; J2540; J2704; J3010; J3370; J7030; J7050; J7060; Q9967

== ENCOUNTER 2024-05-30 01:02 | Day surgery (SDC) | payer OTHER ==
[~2024-05-30 01:02] MED LIST: ACET500 PO; BACTRIM DS TAB1 EAC6 PO; CEFTRIAXONE2 G7 IV; CELE200 PO; CIPR500 PO; COLCHICINE0.6 MG PO; CefTRIAXone Sodium 2,000 MG in NS 100 ML IV SCH; LIPITOR80 MG PO; METO25 PO; METR500 PO; PROBIOTIC1 EA13 PO; PROTONIX4010 PO; TIOT18 INH; TRAZ100 PO
[2024-05-30 15:20] VITALS: BP 112/70
== END 2024-05-30 15:44 | disposition home or self-care (01) ==
LOC: ATC 01:02
DX: A40.0 Sepsis due to streptococcus, group A (principal); R65.21 Severe sepsis with septic shock; R78.81 Bacteremia; J96.01 Acute respiratory failure with hypoxia; N17.9 Acute kidney failure, unspecified; J44.9 Chronic obstructive pulmonary disease, unspecified; E87.1 Hypo-osmolality and hyponatremia
CPT/HCPCS: 96365; J0696

== ENCOUNTER 2024-05-31 05:32 | Day surgery (SDC) | payer OTHER ==
[2024-05-31 15:21] VITALS: BP 132/69
== END 2024-05-31 15:45 | disposition home or self-care (01) ==
LOC: ATC 05:32
DX: A40.0 Sepsis due to streptococcus, group A (principal); R78.81 Bacteremia; J44.9 Chronic obstructive pulmonary disease, unspecified; F17.210 Nicotine dependence, cigarettes, uncomplicated; N17.9 Acute kidney failure, unspecified; E86.0 Dehydration
CPT/HCPCS: 96365; J0696

== ENCOUNTER 2024-06-06 05:22 | Inpatient (IN) | payer OTHER ==
[~2024-06-06] VITALS: Ht 165.1 cm; Wt 75.5 kg
[2024-06-06] VITALS (11 sets, daily range): BP systolic 54–146; BP diastolic 16–129
[~2024-06-06 05:22] MED LIST changes: -CefTRIAXone Sodium 2,000 MG in NS 100 ML IV SCH
[2024-06-06 06:49] LABS: BASOPHILS ABSOLUTE AUTO 0.14 K/mm3 (0.00-0.23); BASOPHILS PERCENT AUTO 1 % (0-2); EOSINOPHILS ABSOLUTE AUTO 0.11 K/mm3 (0.00-0.68); EOSINOPHILS PERCENT AUTO 1 % (0-6); Hematocrit 29.1 % (37.0-53.0); Hemoglobin 9.4 g/dL (13.5-17.5); IMMATURE GRAN ABSOLUTE AUTO 0.18 K/mm3 (0.00-0.10); IMMATURE GRAN PERCENT AUTO 2 % (0-1); LYMPHOCYTES ABSOLUTE AUTO 1.76 K/mm3 (0.84-5.20); LYMPHOCYTES PERCENT AUTO 15 % (21-46); MONOCYTES ABSOLUTE AUTO 1.22 K/mm3 (0.16-1.47); MONOCYTES PERCENT AUTO 10 % (4-13); Mean Corpuscular HGB 28.8 pg (26.0-34.0); Mean Corpuscular HGB Conc 32.3 g/dL (31.5-36.5); Mean Corpuscular Volume 89 fL (80-100); NEUTROPHILS ABSOLUTE AUTO 8.41 K/mm3 (1.96-9.15); NEUTROPHILS PERCENT AUTO 71 % (41-73); RDW Coefficient Variation 16.4 % (11.7-14.2); RDW Standard Deviation 53.8 fL (35.1-46.3); Red Blood Cell Count 3.26 M/mm3 (4.30-5.90); White Blood Cell Count 11.82 K/mm3 (4.00-11.30)
[2024-06-06 07:01] LABS: Albumin/Globulin Ratio 0.3 (0.8-1.8); Bilirubin, Total 0.1 mg/dL (0.1-1.0); Bun/Creatinine Ratio 21.6 (12.0-20.0); Creatinine, Blood 1.67 mg/dL (0.60-1.20); Globulin, Blood 6.7 g/dL (2.2-4.0); Potassium, Blood 5.5 mmol/L (3.5-5.5); Total Protein, Blood 8.7 g/dL (6.4-8.2)
[2024-06-06 07:08] LABS: Platelet Count 812 K/mm3 (150-400)
[2024-06-06] MEDS ORDERED: Ondansetron HCl 2 MG / ML 2ML Vial IV ONE (07:20)
[2024-06-06] MEDS ORDERED: NS 1,000 ML IV SCH ×2 (07:40→11:00)
[2024-06-06] MEDS ORDERED: Morphine Sulfate 4 MG/1 ML Injection IV ONE (10:15)
[2024-06-06] MEDS ORDERED: FLU VACC TS2024-25(6MOS UP)/PF 45 MCG/0.5 ML SYRINGE IM SCH (12:00)
[2024-06-06 12:59] LABS: Bicarbonate Venous 17.1 mmol/L (24.0-30.0); PCO2 Venous 47.1 mmHg (38-42); pH Blood Venous 7.21 (7.34-7.37)
--- NOTE | 2024-06-06 13:16 | NUR ---
DISCUSSED PATIENT WITH BEDSIDE RN AND PROVIDER. PATIENT WAS IN THE RESTROOM AT THE TIME. MET WITH DUARTE TO DISCUSS HIS GOALS OF CARE. HE WOULD LIKE TO PRUSUE TREATMENT, REPORTED THAT HIS APT WITH ONCOLOGY WAS MONTHS OUT. HE HAS A FOLLOW UP WITH HIS PRIMARY PROVIDER TOMORROW. HIS MAIN CONCERNS WERE PAIN, NAUSEA, LACK OF SLEEP, AND NEEDING OXYGEN AT HOME. HE IS WANTING TO GO HOME OPPOSED TO BEING ADMITED TO THE HOSPITAL. DISCUSSED THESE CONCERNS WITH DR. JOHANSEN, DISCUSSED HOME O2 WITH RT. PLAN IS TO ADMIT PATIENT TO ENSURE THAT HE HAS WHAT IS NEEDED UPON HIM LEAVING THE HOSPITAL. PC WILL JAMARI WARNER
[2024-06-06 14:14] LABS: Bun/Creatinine Ratio 22.9 (12.0-20.0); Calcium, Blood 8.5 mg/dL (8.5-10.1); Creatinine, Blood 1.79 mg/dL (0.60-1.20); Potassium, Blood 6.1 mmol/L (3.5-5.5)
[2024-06-06] MEDS ORDERED: Ondansetron HCl 2 MG / ML 2ML Vial IV PRN (14:25)
[2024-06-06] MEDS ORDERED: Dextrose 50% 50 ML Vial IV ONE (14:30)
[2024-06-06] MEDS ORDERED: EPINEPhrine HCl 0.1 MG/ML 10ML SYR IV ONE (14:30)
[2024-06-06] MEDS ORDERED: Insulin Regular 100 Unit/ML 1ML Dose IV ONE (14:30)
[2024-06-06] MEDS ORDERED: Sodium Bicarb 8.4% 50 mEq Syringe IV ONE (14:30)
[2024-06-06] MEDS ORDERED: CALCIUM GLUC IN NACL, ISO-OSM 100 ML IV ONE (14:35)
[2024-06-06] MEDS ORDERED: Acetaminophen 500 MG Tab PO PRN (15:00)
[2024-06-06] MEDS ORDERED: Ipratropium/Albuterol SulF 2.5-0.5MG/3 ML Amp INH SCH (15:00)
[2024-06-06] MEDS ORDERED: TraZODone HCl 100 MG Tab PO PRN (15:05)
--- NOTE | 2024-06-06 16:10 | NUR ---
PATIENT ARRIVED TO MEDICAL FLOOR VIA GURNEY AT 1605. ASHEN SKIN. O2 @ 4LPM/NC. BANDAID LEFT FLANK OVER PREVIOUS PUNCTURE OF THORACENTESIS. BRUISING BILATERAL LOWER ABDOMEN. VOICE HOARSE AND SOFT. WEIGHT 54KG. IV LEFT FOREARM/WRIST TENDER; UNABLE TO FLUSH. L PEDAL PULSE FAINT/THREADY. HRRR.
[2024-06-06] MEDS ORDERED: Pantoprazole Sodium 40 MG Tab PO SCH (16:30)
[2024-06-06] MEDS ORDERED: Vancomycin HCL 1,250 MG in NS 250 ML IV ONE (16:50)
[2024-06-06 18:25] LABS: PCO2 Arterial 24.8 mmHg (35-45); PO2 Arterial >500 mmHg (80-100)
[2024-06-06 18:26] LABS: pH Blood Arterial 7.28 (7.35-7.45)
[2024-06-06] MEDS ORDERED: Pantoprazole Sodium 40 MG in NS 50 ML IV SCH (18:30)
--- NOTE | 2024-06-06 18:59 | NUR ---
PT CAME FROM THE ED AROUND 1545. PT'S STAUS WAS THE SAME ON TRANSPORT. 60 MIN LATER PT HAD WORSENING C/O ABD PAIN AND SOB. SPOT CHECK FOR PULSE OX WAS 79 ON 4LNC. PT THEN ENSISTED ON GOING TO THE BATHROOM FOR BM. PATIENT WIPED AND HAD SATURATED TP WITH BRIGHT RED BLOOD. THIS NURSE ASKED PT IF THIS WAS NEW AND PT STATED "YES, MARTHA NEVER BLED FROM MY ANUS BEFORE" PT CONTINUED TO HAVE WORSENING SYMPTOMS, TACHYPNEIC, ABD PAIN. SO THIS NURSE CALLED RAPID RESPONSE. PT HAS NOW BEEN TRANSFERRED TO ICU 15
[2024-06-06] MEDS ORDERED: LORazepam 2 MG/ML 1ML Injection IV ONE (19:20)
[2024-06-06] MEDS ORDERED: Lactated Ringer's 1,000 ML IV ONE ×3 (19:20→20:19)
[2024-06-06] MEDS ORDERED: Metoprolol Tartrate 5 ML IV ONE (19:24)
[2024-06-06] MEDS ORDERED: LORazepam 2 MG/ML 1ML Injection ONE (20:02)
[2024-06-06] MEDS ORDERED: propofoL 100 ML IV ONE (20:13)
[2024-06-06 20:48] LABS: PCO2 Arterial 28.1 mmHg (35-45); PO2 Arterial 402 mmHg (80-100)
[2024-06-06] MEDS ORDERED: Vasopressin 20 UNITS in NS 100 ML IV SCH (20:50)
[2024-06-06 20:51] LABS: BASOPHILS ABSOLUTE AUTO 0.02 K/mm3 (0.00-0.23); BASOPHILS PERCENT AUTO 0 % (0-2); EOSINOPHILS PERCENT AUTO 0 % (0-6); Hematocrit 21.5 % (37.0-53.0); Hemoglobin 6.8 g/dL (13.5-17.5); IMMATURE GRAN ABSOLUTE AUTO 0.21 K/mm3 (0.00-0.10); IMMATURE GRAN PERCENT AUTO 2 % (0-1); LYMPHOCYTES ABSOLUTE AUTO 2.29 K/mm3 (0.84-5.20); LYMPHOCYTES PERCENT AUTO 18 % (21-46); MONOCYTES ABSOLUTE AUTO 1.65 K/mm3 (0.16-1.47); MONOCYTES PERCENT AUTO 13 % (4-13); Mean Corpuscular HGB 28.7 pg (26.0-34.0); Mean Corpuscular HGB Conc 31.6 g/dL (31.5-36.5); Mean Corpuscular Volume 91 fL (80-100); Mean Platelet Volume 9.9 fL (9.1-12.4); NEUTROPHILS ABSOLUTE AUTO 8.87 K/mm3 (1.96-9.15); NEUTROPHILS PERCENT AUTO 68 % (41-73); Platelet Count 477 K/mm3 (150-400); RDW Coefficient Variation 16.9 % (11.7-14.2); RDW Standard Deviation 55.7 fL (35.1-46.3); Red Blood Cell Count 2.37 M/mm3 (4.30-5.90); White Blood Cell Count 13.04 K/mm3 (4.00-11.30)
[2024-06-06 20:59] LABS: International Normalized Ratio 1.55; Prothrombin Time Results 16.1 Sec (9.7-11.5)
[2024-06-06] MEDS ORDERED: Lactobacil 2-S.Thermo-Bifido 1 1 Cap PO SCH (21:00)
[2024-06-06] MEDS ORDERED: Celecoxib 100 MG Cap PO SCH (21:00)
[2024-06-06] MEDS ORDERED: Trimethoprim/Sulfamethoxazole DS Tab PO SCH (21:00)
[2024-06-06] MEDS ORDERED: Sodium Zirconium Cyclosilicate 10 GM Packet PO SCH (21:00)
[2024-06-06] MEDS ORDERED: Amoxicillin 500 MG Cap PO SCH (21:00)
[2024-06-06] MEDS ORDERED: Metoprolol Tartrate 25 MG Tab PO SCH (21:00)
[2024-06-06] MEDS ORDERED: Ciprofloxacin 500 MG Tab PO SCH (21:00)
[2024-06-06] MEDS ORDERED: MetroNIDAZOLE 500 MG Tab PO SCH (21:00)
[2024-06-06 21:07] LABS: Magnesium, Blood 2.9 mg/dL (1.6-2.4)
[2024-06-06] MEDS ORDERED: Sodium Bicarb 8.4% Inj 150 MEQ in Dextrose 5% 1,000 ML IV SCH (21:10)
[2024-06-06] MEDS ORDERED: Cetylpyridinium Chloride 1 EA MISC MT SCH (21:15)
[2024-06-06] MEDS ORDERED: Sodium Bicarb 8.4% Inj 150 MEQ in Dextrose 5% 1,000 ML IV ONE (21:25)
[2024-06-06] MEDS ORDERED: propofoL 100 ML IV SCH (21:25)
[2024-06-06] MEDS ORDERED: NS 250 ML IV ONE (21:28)
[2024-06-06 21:47] LABS: Bun/Creatinine Ratio 22.1 (12.0-20.0); Calcium, Blood 9.2 mg/dL (8.5-10.1); Creatinine, Blood 2.08 mg/dL (0.60-1.20); Phosphorus, Blood 9.6 mg/dL (2.5-4.9); Potassium, Blood 6.1 mmol/L (3.5-5.5)
[2024-06-06] MEDS ORDERED: NS 500 ML IV ONE (22:05)
[2024-06-06] MEDS ORDERED: FentaNYL Citrate 50 MCG/ML 2 ML Injection ONE (22:54)
--- NOTE | 2024-06-06 23:00 | NUR ---
PT OUT TO PEDIATRIC SPEECH LANGUAGE PATHOLOGIST AT 2230 ACCOMPANIED BY RT AND PEDIATRIC SPEECH LANGUAGE PATHOLOGIST TEAM. PT HAD BEGUN 1ST OF 2 UNITS PRBC'S BOLUS RATE AT 2228. SECOND UNIT SENT WITH CATH TEAM WHEREAS THEY WILL INFUSE ONCE FIRST UNIT COMPLETED. WAS ABLE TO BRING LEVOPHED DOWN TO 15 MCG'S/MIN AND DID NOT NEED TO START VASOPRESSIN.
--- NOTE | 2024-06-06 23:14 | NUR ---
ASSUMED CARE OF PT AT 1900. REPORT RECEIVED AT BEDSIDE. PT PRESENTED WITH OXIMASK IN PLACE. PT KEPT REMOVING MASK AND FIGHTING ABOUT IN BED. PT ONLY IV ACCESS AT THE TIME WAS 22 GAUGE TO UPPER RIGHT ARM. DID USE ULTRASOUND TO ACCESS FOR POWERGLIDE. PT WAS NOT ABLE TO HOLD STILL IN BED. OF NOTE: PT'S BECOMES APNEIC AT 1946. HEART RATE BECOMES BRADYCARDIC. CODE CALLED AND COMRESSIONS STARTED. PLEASE SEE CODE BLUE SHEET FOR CODE DETAILS. WILL REVIEW CHART AND PLAN OF CARE WHEN ABLE. DR CHAVEZ AT BEDSIDE. ORDERS RECEIVED. PLAN FOR CENTRAL LINE AND ART LINE.
[2024-06-07] VITALS (31 sets, daily range): BP systolic 97–202; BP diastolic 52–89
[2024-06-07] MEDS ORDERED: Hydrogen Peroxide 1.5 % Solution MT SCH
[2024-06-07 00:10] LABS: PCO2 Arterial 28.5 mmHg (35-45); PO2 Arterial 403 mmHg (80-100)
[2024-06-07 00:23] LABS: Hemoglobin 9.8 g/dL (13.5-17.5)
[2024-06-07 01:06] LABS: Albumin, Blood 1.5 g/dL (3.4-5.0); Albumin/Globulin Ratio 0.3 (0.8-1.8); Bilirubin, Total 0.7 mg/dL (0.1-1.0); Bun/Creatinine Ratio 23.1 (12.0-20.0); Calcium, Blood 7.6 mg/dL (8.5-10.1); Creatinine, Blood 2.08 mg/dL (0.60-1.20); Globulin, Blood 4.7 g/dL (2.2-4.0); Potassium, Blood 6.1 mmol/L (3.5-5.5)
[2024-06-07 01:09] LABS: Total Protein, Blood 6.2 g/dL (6.4-8.2)
[2024-06-07 04:40] LABS: BASOPHILS ABSOLUTE AUTO 0.04 K/mm3 (0.00-0.23); BASOPHILS PERCENT AUTO 0 % (0-2); EOSINOPHILS PERCENT AUTO 0 % (0-6); Hematocrit 27.7 % (37.0-53.0); Hemoglobin 9.8 g/dL (13.5-17.5); IMMATURE GRAN ABSOLUTE AUTO 0.18 K/mm3 (0.00-0.10); IMMATURE GRAN PERCENT AUTO 1 % (0-1); LYMPHOCYTES ABSOLUTE AUTO 1.41 K/mm3 (0.84-5.20); LYMPHOCYTES PERCENT AUTO 8 % (21-46); MONOCYTES ABSOLUTE AUTO 0.36 K/mm3 (0.16-1.47); MONOCYTES PERCENT AUTO 2 % (4-13); Mean Corpuscular HGB 29.3 pg (26.0-34.0); Mean Corpuscular HGB Conc 35.4 g/dL (31.5-36.5); Mean Platelet Volume 8.9 fL (9.1-12.4); NEUTROPHILS ABSOLUTE AUTO 16.39 K/mm3 (1.96-9.15); NEUTROPHILS PERCENT AUTO 89 % (41-73); Platelet Count 523 K/mm3 (150-400); RDW Coefficient Variation 15.2 % (11.7-14.2); RDW Standard Deviation 46.3 fL (35.1-46.3); Red Blood Cell Count 3.35 M/mm3 (4.30-5.90); White Blood Cell Count 18.38 K/mm3 (4.00-11.30)
[2024-06-07 04:42] LABS: Mean Corpuscular Volume 83 fL (80-100)
[2024-06-07] MEDS ORDERED: NS 500 ML IV SCH (04:50)
[2024-06-07 05:14] LABS: Alanine Aminotransfer (ALT/SGP 2973 U/L (12-78); Albumin, Blood 1.5 g/dL (3.4-5.0); Albumin/Globulin Ratio 0.3 (0.8-1.8); Alk Phos 159 U/L (50-136); Anion Gap 16 mmol/L (3-11); Aspartate Aminotrans (AST/SGOT 6605 U/L (12-37); Bilirubin, Total 0.8 mg/dL (0.1-1.0); Blood Urea Nitrogen 49 mg/dL (8-24); Bun/Creatinine Ratio 22.6 (12.0-20.0); CO2, Blood 26 mmol/L (21-32); Calcium, Blood 7.4 mg/dL (8.5-10.1); Chloride, Blood 95 mmol/L (98-108); Creatinine, Blood 2.17 mg/dL (0.60-1.20); Globulin, Blood 4.3 g/dL (2.2-4.0); Glomerular Filtration Rate 34 (60-); Glucose, Blood 297 mg/dL (70-99); Potassium, Blood 4.9 mmol/L (3.5-5.5); Sodium, Blood 132 mmol/L (136-145); Total Protein, Blood 5.8 g/dL (6.4-8.2); Vancomycin, Random <0.8 ug/mL
[2024-06-07 05:17] LABS: International Normalized Ratio 1.41; Prothrombin Time Results 14.7 Sec (9.7-11.5)
[2024-06-07] MEDS ORDERED: Vancomycin HCL 1,500 MG in NS 250 ML IV ONE (05:40)
[2024-06-07] MEDS ORDERED: Vancomycin HCL 1,250 MG in NS 250 ML IV ONE (05:40)
--- NOTE | 2024-06-07 06:30 | NUR ---
HAVE BEEN ABLE TO TITRATE LEVOPHED DOWN TO 3 MCG'S/MIN. PROPOFOL AT 30 MCG'S/KG/MIN. AMIODARONE AT 0.5 MG COMPLETION OF THERAPY TO BE AT 2030 THIS EVENING. PT HAS 130 ML PERIOCARDIAL FLUID TO DRAIN BAG. PT HAS HAD 600 ML OUTPUT WHILE IN MUSIC ARRANGER. PT HAS REMAINED IN SINUS TO SINUS ABDOULAYE SINCE RETURNING FROM [facility]. 400 ML URINE OUTPUT. BICARB DRIP CONTINUES. PT HAS TOLERATED Q 2 HOUR TURNS. WILL CONTINUE TO MONITOR PT, AND WILL REPORT OFF TO ONCOMING RN.
[2024-06-07 08:27] LABS: PCO2 Arterial 38.7 mmHg (35-45); PO2 Arterial 149 mmHg (80-100); pH Blood Arterial 7.53 (7.35-7.45)
--- NOTE | 2024-06-07 08:48 | NUR ---
OG TUBE PLACED, DR CHAVEZ VERIFIED PLACEMENT BEDSIDE
[2024-06-07] MEDS ORDERED: Atorvastatin 40 MG Tab PO SCH (09:00)
[2024-06-07] MEDS ORDERED: Enoxaparin 40 MG/0.4 ML SYR SC SCH (09:00)
[2024-06-07] MEDS ORDERED: Colchicine 0.6 MG TAB PO SCH (09:00)
[2024-06-07 12:51] LABS: Triglycerides 74 mg/dL (30-160)
--- NOTE | 2024-06-07 13:25 | NUR ---
"Spirirual Care Visit | Pt. Request Pt. is intubated and is not responsive. Caregiver amairani is at his bedside and welcomes my visit. Facilitated a life review and learned a little of the Pts. Life Story. Amairani welcomed prayer for the Pt. Prayed for the Pt. Will remain available to the pt. and his bedside support team."
[2024-06-07 15:40] LABS: Automated BF RBC Count 0.012 M/mm3 (0-0)
[2024-06-07 15:48] LABS: Automated BF WBC Count 14.128 K/mm3 (0-999); Body Fluid WBC Count 14128 /mm3 (0-999); RBC Count, Body Fluid 12000 /mm3 (0-0)
[2024-06-07 15:49] LABS: Appearance, Body Fluid Cloudy (Clear)
[2024-06-07 16:01] LABS: Glucose, Body Fluid 27 mg/dL; Protein, Body Fluid 4.3 g/dL
[2024-06-07] MEDS ORDERED: FentaNYL Citrate 50 MCG/ML 2 ML Injection ONE (16:04)
[2024-06-07 16:29] LABS: Total Cell Count, Body Fluid 100
[2024-06-07 16:33] LABS: Hematocrit 30.9 % (37.0-53.0); Hemoglobin 11.1 g/dL (13.5-17.5)
[2024-06-07 16:59] LABS: PO2 Arterial 80.6 mmHg (80-100)
[2024-06-07] MEDS ORDERED: FentaNYL Citrate 50 MCG/ML 2 ML Injection IV PRN (17:00)
[2024-06-07 17:01] LABS: pH Blood Arterial 7.63 (7.35-7.45)
--- NOTE | 2024-06-07 17:15 | NUR ---
Pt remains on the vent today. Sedation vacation done today, pt followed commands without difficulty. Plan for extubation tomorrow. Jackie Schwartz NP Oncology to see pt this evening. Relayed information to pt's sister Che as she requested. Plan to continue following pt, assist with advanced care planning.
[2024-06-07 17:24] LABS: Albumin, Blood 1.6 g/dL (3.4-5.0); Albumin/Globulin Ratio 0.3 (0.8-1.8); Bilirubin, Total 0.9 mg/dL (0.1-1.0); Bun/Creatinine Ratio 20.9 (12.0-20.0); Calcium, Blood 7.5 mg/dL (8.5-10.1); Creatinine, Blood 1.96 mg/dL (0.60-1.20); Globulin, Blood 4.8 g/dL (2.2-4.0); Potassium, Blood 3.9 mmol/L (3.5-5.5); Total Protein, Blood 6.4 g/dL (6.4-8.2)
--- NOTE | 2024-06-07 18:02 | NUR ---
PATIENT INTUBATED AND SEDATED, DURING SEDATION VACATION, PATIENT FOLLOWS COMMANDS AND NODS APPROPRIATELY, LEVO OFF IN THE AM, BICARB DRIP STOPPED TODAY, LEFT CHEST TUBE PLAED IN CT, GARG IN PLACE AND DRAINING URINE, FEEDING TUBE PLACED AND TF STARTED VITAL HP, PER DR. CHAVEZ PLAN IS TO EXTUBATE TOMORROW
--- NOTE | 2024-06-07 20:00 | NUR ---
ASSUMED CARE OF PT AT 1900. REPORT RECEIVED AT BEDSIDE. PT PRESENTS IN BED. INTUBATED. MAINTAINS > 90 PERCENT. PT ON PROPOFOL AT 45 MCG'S/KG/MIN. WILL REVIEW CHART AND PLAN OF CARE FOR THIS PT.
[2024-06-07] MEDS ORDERED: Acetaminophen 500 MG Tab PT PRN (20:46)
[2024-06-07] MEDS ORDERED: MetroNIDAZOLE 500 MG Tab PT SCH (21:00)
[2024-06-07] MEDS ORDERED: Amoxicillin 500 MG Cap PT SCH (21:00)
[2024-06-07] MEDS ORDERED: Metoprolol Tartrate 25 MG Tab PT SCH (21:00)
[2024-06-07] MEDS ORDERED: Lactobacil 2-S.Thermo-Bifido 1 1 Cap PT SCH (21:00)
[2024-06-07] MEDS ORDERED: Amoxicillin 250 MG/5 ML UDC 5ML BTL PT SCH (22:00)
[2024-06-08] VITALS (24 sets, daily range): BP systolic 96–116; BP diastolic 55–78
--- NOTE | 2024-06-08 | NUR ---
FULL BEDBATH DONE. LINEN CHANGED. DID CHANGE DRESSING ON CENTRAL AND ARTERIAL LINE. CHEST TUBE REMAINS INTACT. REINFORCED DRESSING AND SECUREMENT OF CHEST TUBE LINE. PERICARDIAL DRAIN WITH SEROUSAINGEOUS DRAINAGE.
[2024-06-08 04:10] LABS: PCO2 Arterial 42.1 mmHg (35-45); PO2 Arterial 118 mmHg (80-100); pH Blood Arterial 7.51 (7.35-7.45)
[2024-06-08 05:17] LABS: BASOPHILS ABSOLUTE AUTO 0.08 K/mm3 (0.00-0.23); BASOPHILS PERCENT AUTO 1 % (0-2); EOSINOPHILS ABSOLUTE AUTO 0.01 K/mm3 (0.00-0.68); EOSINOPHILS PERCENT AUTO 0 % (0-6); Hematocrit 30.3 % (37.0-53.0); Hemoglobin 10.6 g/dL (13.5-17.5); IMMATURE GRAN ABSOLUTE AUTO 0.11 K/mm3 (0.00-0.10); IMMATURE GRAN PERCENT AUTO 1 % (0-1); LYMPHOCYTES ABSOLUTE AUTO 1.35 K/mm3 (0.84-5.20); LYMPHOCYTES PERCENT AUTO 9 % (21-46); MONOCYTES ABSOLUTE AUTO 0.37 K/mm3 (0.16-1.47); MONOCYTES PERCENT AUTO 3 % (4-13); Mean Corpuscular HGB 28.9 pg (26.0-34.0); Mean Corpuscular Volume 83 fL (80-100); Mean Platelet Volume 9.5 fL (9.1-12.4); NEUTROPHILS PERCENT AUTO 87 % (41-73); NRBC ABSOLUTE 0.06 K/mm3 (0.00-0.02); NRBC Auto 0.4 /100 WBC (0.0-0.2); Platelet Count 577 K/mm3 (150-400); RDW Coefficient Variation 15.3 % (11.7-14.2); RDW Standard Deviation 46.3 fL (35.1-46.3); Red Blood Cell Count 3.67 M/mm3 (4.30-5.90); White Blood Cell Count 14.82 K/mm3 (4.00-11.30)
--- NOTE | 2024-06-08 06:30 | NUR ---
PT ABLE TO SQUEEZE FINGERS AND WIGGLE TOES ON COMMAND. HAS BEEN MEDICATED ONCE WITH 50 MCG'S FENTANYL. PT DOES ACKNOWLEDGE PAIN. WITH SHORT SEDATION VACATION PT WAS ABLE TO FOLLOW COMMANDS. WILL CONTINUE TO MONITOR PT, AND WILL REPORT OFF TO ONCOMING RN.
[2024-06-08 06:52] LABS: Magnesium, Blood 1.8 mg/dL (1.6-2.4)
[2024-06-08 07:16] LABS: Alanine Aminotransfer (ALT/SGP 2882 U/L (12-78); Albumin, Blood 1.5 g/dL (3.4-5.0); Albumin/Globulin Ratio 0.3 (0.8-1.8); Alk Phos 189 U/L (50-136); Anion Gap 11 mmol/L (3-11); Aspartate Aminotrans (AST/SGOT 4312 U/L (12-37); Bilirubin, Total 0.6 mg/dL (0.1-1.0); Blood Urea Nitrogen 33 mg/dL (8-24); Bun/Creatinine Ratio 18.3 (12.0-20.0); CO2, Blood 31 mmol/L (21-32); Calcium, Blood 7.1 mg/dL (8.5-10.1); Chloride, Blood 96 mmol/L (98-108); Globulin, Blood 4.7 g/dL (2.2-4.0); Glomerular Filtration Rate 42 (60-); Glucose, Blood 113 mg/dL (70-99); Phosphorus, Blood 3.3 mg/dL (2.5-4.9); Potassium, Blood 3.9 mmol/L (3.5-5.5); Sodium, Blood 134 mmol/L (136-145); Total Protein, Blood 6.2 g/dL (6.4-8.2); Vancomycin, Random 9.8 ug/mL
[2024-06-08] MEDS ORDERED: Vancomycin HCL 1,000 MG in NS 250 ML IV SCH (09:00)
[2024-06-08] MEDS ORDERED: Protein Supplement 30 ML UD PT SCH (09:00)
[2024-06-08] MEDS ORDERED: Atorvastatin 40 MG Tab PT SCH (09:00)
--- NOTE | 2024-06-08 11:18 | NUR ---
EXTUBATION DR CHAVEZ AT BEDSIDE TO SEE PT. PT ON PRESSURE SUPPORT AND DOING WELL. PT IS AWAKE AND FOLLOWING COMMANDS. PT EXTUBATED AT 1105 BY RT FAUSTO. PT PLACED ON 2L O2 NC. VITAL SIGNS STABLE. WILL CONTINUE TO MONITOR.
[2024-06-08] MEDS ORDERED: Ipratropium/Albuterol SulF 2.5-0.5MG/3 ML Amp INH PRN (11:20)
[2024-06-08] MEDS ORDERED: Amoxicillin 500 MG Cap PO SCH ×2 (16:40→22:30)
--- NOTE | 2024-06-08 18:01 | NUR ---
SHIFT SUMMARY PT EXTUBATED THIS SHIFT. PT HAS REMAINED ALERT AND ORIENTED WHEN AWAKE THIS SHIFT. PT HAS DONE WELL S/P EXTUBATION ON 2L O2 NC. VITAL SIGNS HAVE REMAINED STABLE. PT TAKING IN PO INTAKE WELL. PT MED WITH FENTANYL PRN FOR CHEST/LEFT FLANK DISCOMFORT. POWERGLIDE PLACED TO [place], SALINE LOCKED AT THIS TIME. RIGHT FEMORAL ARTERIAL AND CENTRAL LINES REMOVED THIS EVENING. PT TOLERATED WELL. PT REMAINS SUPINE S/P LINE REMOVAL AT THIS TIME. PT OTHERWISE HAS BEEN REPOSITIONING SELF IN BED WITH MINIMAL ASSISTANCE. PERICARDIAL DRAING REMAINS C/D/I WITH NO MEASUREABLE OUTPUT NOTED THIS SHIFT. LEFT POSTERIOR CHEST TUBE REMAINS C/D/I WITH SMALL AMOUNT OF SEROUS OUTPUT NOTED. NO AIRLEAK OR TIDALING NOTED THIS SHIFT. PT SISTER UPDATED VIA PHONE. WILL CONTINUE TO MONITOR AND REPORT OFF TO ONCOMING RN.
--- NOTE | 2024-06-08 19:27 | NUR ---
ASSUMED CARE OF PT AT 1900. REPORT RECEIVED AT BEDSIDE. PT PRESENTS IN BED. ALERT AND ORIENTED. IS NOT ABLE TO RECALL EVENTS PRIOR TO CODING. DOES STATE HE FEELS HUNGRY AND WOULD LIKE TO EAT. HIS FOOD WARMED AND GIVEN TO PT. DID HAVE PT EAT HIS PUREED PEACHES TO EVALUATE SAFE SWALLOW. PT DID WELL. WILL REVIEW CHART AND PLAN OF CARE FOR THIS PT.
[2024-06-08] MEDS ORDERED: Acetaminophen 500 MG Tab PO PRN (19:35)
--- NOTE | 2024-06-08 20:15 | NUR ---
DR FORDE COMES IN TO SEE PT. ORDER RECEIVED FOR FOLLOWUP LACTIC ACID. THIS DRAWN AND SENT TO LAB. PT VERY INTERACTIVE. ASKS QUESTIONS ABOUT PAST FEW DAYS.
[2024-06-08] MEDS ORDERED: Lactobacil 2-S.Thermo-Bifido 1 1 Cap PO SCH (21:00)
[2024-06-08] MEDS ORDERED: MetroNIDAZOLE 500 MG Tab PO SCH (21:00)
[2024-06-08] MEDS ORDERED: Protein Supplement 30 ML UD PO SCH (21:00)
[2024-06-08] MEDS ORDERED: Metoprolol Tartrate 25 MG Tab PO SCH (21:00)
[2024-06-09] VITALS (45 sets, daily range): BP systolic 90–121; BP diastolic 49–96
--- NOTE | 2024-06-09 00:57 | NUR ---
PT HAS BEEN MEDICATED TWICE WITH 50 MCG'S FENTANYL FOR POST CPR PAIN WELL FROM CHEST TUBE INSERTION SITE. PT VOICES THAT THIS DOSAGE VERY AFFECTIVE TO RELIEVE THIS PAIN. PT HAS MINIMAL SEROUS DRAINAGE FROM CHEST TUBE. MINIMAL OUTPUT FROM PERICARDIAL TUBE. PT ABLE TO MOVE HIMSELF AROUND IN BED. WILL CONTINUE TO MONITOR PT,
[2024-06-09 05:01] LABS: BASOPHILS ABSOLUTE AUTO 0.07 K/mm3 (0.00-0.23); BASOPHILS PERCENT AUTO 1 % (0-2); EOSINOPHILS ABSOLUTE AUTO 0.18 K/mm3 (0.00-0.68); EOSINOPHILS PERCENT AUTO 2 % (0-6); Hemoglobin 10.1 g/dL (13.5-17.5); IMMATURE GRAN ABSOLUTE AUTO 0.09 K/mm3 (0.00-0.10); IMMATURE GRAN PERCENT AUTO 1 % (0-1); LYMPHOCYTES ABSOLUTE AUTO 1.22 K/mm3 (0.84-5.20); LYMPHOCYTES PERCENT AUTO 11 % (21-46); MONOCYTES ABSOLUTE AUTO 0.57 K/mm3 (0.16-1.47); MONOCYTES PERCENT AUTO 5 % (4-13); Mean Corpuscular HGB Conc 33.7 g/dL (31.5-36.5); Mean Corpuscular Volume 86 fL (80-100); Mean Platelet Volume 9.4 fL (9.1-12.4); NEUTROPHILS ABSOLUTE AUTO 9.22 K/mm3 (1.96-9.15); NEUTROPHILS PERCENT AUTO 81 % (41-73); NRBC ABSOLUTE 0.07 K/mm3 (0.00-0.02); NRBC Auto 0.6 /100 WBC (0.0-0.2); Platelet Count 513 K/mm3 (150-400); RDW Coefficient Variation 15.9 % (11.7-14.2); RDW Standard Deviation 49.9 fL (35.1-46.3); Red Blood Cell Count 3.48 M/mm3 (4.30-5.90); White Blood Cell Count 11.35 K/mm3 (4.00-11.30)
[2024-06-09 05:31] LABS: Magnesium, Blood 2.1 mg/dL (1.6-2.4)
[2024-06-09 05:35] LABS: Alanine Aminotransfer (ALT/SGP 1751 U/L (12-78); Albumin, Blood 1.5 g/dL (3.4-5.0); Albumin/Globulin Ratio 0.3 (0.8-1.8); Alk Phos 163 U/L (50-136); Anion Gap 8 mmol/L (3-11); Aspartate Aminotrans (AST/SGOT 1434 U/L (12-37); Bilirubin, Total 0.5 mg/dL (0.1-1.0); Blood Urea Nitrogen 25 mg/dL (8-24); CO2, Blood 30 mmol/L (21-32); Calcium, Blood 7.7 mg/dL (8.5-10.1); Chloride, Blood 102 mmol/L (98-108); Creatinine, Blood 1.39 mg/dL (0.60-1.20); Globulin, Blood 4.6 g/dL (2.2-4.0); Glomerular Filtration Rate 57 (60-); Glucose, Blood 115 mg/dL (70-99); Phosphorus, Blood 2.8 mg/dL (2.5-4.9); Potassium, Blood 4.1 mmol/L (3.5-5.5); Sodium, Blood 136 mmol/L (136-145); Total Protein, Blood 6.1 g/dL (6.4-8.2); Vancomycin, Random 10.3 ug/mL
--- NOTE | 2024-06-09 06:48 | NUR ---
PT HAS MINIMAL OUTPUT FROM PERICARDIAL DRAIN. ONLY NOTED IN SUCTION LINE. CHEST TUBE HAS SEROUS DRAINAGE AT 83 ML THIS NIGHT. PT HAS BEEN HAVING A MOIST PRODUCTIVE COUGH WHEREAS HE USES YANKEUR TO SELF SUCTION HIMSELF. HAS BEEN HAVING PAIN FROM CPR, AND FROM CHEST TUBE. HAVE MEDICATED PT WITH 50 MCG'S OF FENTANYL WITH GOOD RESULTS. WILL CONTINUE TO MONITOR PT, AND WILL REPORT OFF TO ONCOMING RN.
[2024-06-09] MEDS ORDERED: Vancomycin HCL 750 MG in NS 250 ML IV SCH (08:00)
[2024-06-09] MEDS ORDERED: Atorvastatin 40 MG Tab PO SCH (09:00)
--- NOTE | 2024-06-09 15:52 | NUR ---
PATIENT ALERT AND ORIENTED X4. ABLE TO MAKE HIS NEEDS KNOWN AND CALLS APPROPRIATELY. VSS. SR W/ OCCASIONAL PVCS. HR 60-70S CT CHEST COMPLETED PER DR PATIÑO. ECHO COMPLETED THIS AM. NO DRAINAGE FROM PERICARDIAL DRAIN THIS MORNING. APPROX 158ML OUTPUT FROM CHEST TUBE THIS SHIFT. PATIENT VERBALIZES PAIN TO AREA WHERE CHEST TUBE IS INSERTED AND GENERALZED PAIN OF HIS CHEST WALL. 1315 DR FORDE IN THE ROOM TO REMOVE PATIENTS PERICARDIAL DRAIN. PATIENT TOLRATED WELL. PRE MEDICATED [facility] PAIN MEDICATIONS SEE MAR FOR DETAILS. LUNGS CLEAR ANTERIORLY BUT COARSE IN THE POSTERIOR BASES. +COUGH. USING SUCTION INDEPENDENTLY TO MANAGE PHLEGM. ABDOMEN IS SOFT NON TENDER, BOWEL TONES HYPOACTIVE. GARG DRAINING YELLOW URINE TO GRAVITY, DISCUSSED REMOVAL AND PATIENT DECLINED FOR TODAY BUT AGREEABLE TO REMOVAL TOMORROW. PATIENT REFUSED BED BATH AND GOWN CHANGE THIS SHIFT AFTER MULTIPLE OFFERS
[2024-06-09] MEDS ORDERED: Heparin Sodium 5000 Units/ML 1ML MDV SC SCH (21:00)
[2024-06-10] VITALS (10 sets, daily range): BP systolic 86–135; BP diastolic 56–95
[2024-06-10 04:58] LABS: BASOPHILS PERCENT AUTO 1 % (0-2); EOSINOPHILS PERCENT AUTO 4 % (0-6); IMMATURE GRAN ABSOLUTE AUTO 0.09 K/mm3 (0.00-0.10); IMMATURE GRAN PERCENT AUTO 1 % (0-1); LYMPHOCYTES PERCENT AUTO 13 % (21-46); MONOCYTES ABSOLUTE AUTO 0.99 K/mm3 (0.16-1.47); MONOCYTES PERCENT AUTO 10 % (4-13); Mean Corpuscular HGB 28.7 pg (26.0-34.0); Mean Corpuscular HGB Conc 32.3 g/dL (31.5-36.5); Mean Corpuscular Volume 89 fL (80-100); Mean Platelet Volume 8.9 fL (9.1-12.4); NEUTROPHILS PERCENT AUTO 71 % (41-73); NRBC ABSOLUTE 0.05 K/mm3 (0.00-0.02); NRBC Auto 0.5 /100 WBC (0.0-0.2); Platelet Count 484 K/mm3 (150-400); RDW Coefficient Variation 15.9 % (11.7-14.2); RDW Standard Deviation 51.5 fL (35.1-46.3); Red Blood Cell Count 3.49 M/mm3 (4.30-5.90); White Blood Cell Count 9.78 K/mm3 (4.00-11.30)
[2024-06-10 05:24] LABS: Magnesium, Blood 1.9 mg/dL (1.6-2.4)
[2024-06-10 05:30] LABS: Albumin, Blood 1.5 g/dL (3.4-5.0); Albumin/Globulin Ratio 0.3 (0.8-1.8); Bilirubin, Total 0.4 mg/dL (0.1-1.0); Bun/Creatinine Ratio 14.8 (12.0-20.0); Calcium, Blood 7.4 mg/dL (8.5-10.1); Creatinine, Blood 1.22 mg/dL (0.60-1.20); Globulin, Blood 4.7 g/dL (2.2-4.0); Phosphorus, Blood 2.2 mg/dL (2.5-4.9); Total Protein, Blood 6.2 g/dL (6.4-8.2)
[2024-06-10] MEDS ORDERED: Sodium Phosphate 30 MM in Dextrose 5% 500 ML IV ONE (06:10)
--- NOTE | 2024-06-10 06:19 | NUR ---
SHIFT SUMMARY PATIENT SLEPT THROUGH NIGHT. PATIENT ABLE TO USE CALL LIGHT APPROPRIATE. HAD PAIN IN CHEST AREA X1 GAVE PAIN MEDS PER EMAR. DANIEL HAS HAD SOME SNACKS THROUGH NIGHT WELL. PATIENT ON 1L OF O2 VIA NC O2 SATS AT 97%. HR IN THE 60'S. SBP IN THE 120'S HAS DROPPED DOWN WHEN PATIENT SLEEPING TO THE 100'S. PATIENT VERY SOFT SPOKEN HARD TO UNDERSTAND BUT IS A&OX4. PATIENT HAD ZOFRAN 4MG FOR NAUSEA. HAS POWERGLIDE [place]. PHOSPHATE REPLACED PER [facility] INFUSING. CALL LIGHT WITHIN REACH.
--- NOTE | 2024-06-10 07:15 | NUR ---
ASSUMPTION OF CARE: ASSUMED CARE OF PATIENT. PATIENT RESTING COMFORTABLY IN BED ON 1L VIA NC. SPO2 >96%. PATIENT DENIES SHORTNESS OF BREATH. VITALS STABLE WITH MAPS >65 AND HR IN THE 70S. GARG IN PLACE AND DRAINING FREELY. POTASSIUM PHOSPHATES INFUSING PER ORDERS. CALL LIGHT WITHIN REACH. PATIENT DENIES NEEDS AT THIS TIME.
[2024-06-10] MEDS ORDERED: Thiamine HCl 100 MG Tab PO SCH (09:00)
[2024-06-10] MEDS ORDERED: Metoclopramide HCl 10 MG Tab PO PRN (10:40)
[2024-06-10] MEDS ORDERED: Colchicine 0.6 MG TAB PO SCH (14:00)
--- NOTE | 2024-06-10 15:56 | NUR ---
COLLECTION OF FLUID AROUND CHEST TUBE INSERTION SITE: DR. MAYERS AWARE OF COLLECTION OF FLUID AROUND CHEST TUBE INSERTION SITE. UPON PALPATION IT IS SOFT AND NON TENDER. NO BRUISING OR CREPITIS PRESENT.
--- NOTE | 2024-06-10 15:59 | NUR ---
TX SUMMARY PT TRANSFERED TO PCU 12 FROM ICU 15. REPORT FROM LAUREN DAN RN. THE PT TRANSFERED VIA W/C TO THE ROOM AND WAS A SBA TO THE BED. HE IS ON 1L NC W/ SP02 >93%, HE DOES DENY SOB. LUNG SOUNDS DIMINISHED ON LLL AND TEMO. THERE IS SWELLING ON THE PT'S LEFT FLANK WHERE THE CHEST TUBE WAS PLACED. DRESSING INTACT. PT W/O PAIN/TENDERNESS. DR. JOHANSEN MADE AWARE BY LAUREN SHAW. ON TELE THE PT IS SR 60'S AND BP IS STABLE. THE PT DOES STATE SOME TENDERNESS IN HIS MIDSTERNUM, BUT PAIN IS CONTROLLED. PT SET UP IN BED WITH THE TV, SUCTION FOR SPUTUUM SET UP, SNACKS, AND A WARM BLANKET PROVIDED. CALL LIGHT IN REACH.
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
[2024-06-11 04:55] LABS: BASOPHILS ABSOLUTE AUTO 0.07 K/mm3 (0.00-0.23); BASOPHILS PERCENT AUTO 1 % (0-2); EOSINOPHILS ABSOLUTE AUTO 0.44 K/mm3 (0.00-0.68); EOSINOPHILS PERCENT AUTO 5 % (0-6); Hematocrit 33.4 % (37.0-53.0); Hemoglobin 10.9 g/dL (13.5-17.5); IMMATURE GRAN ABSOLUTE AUTO 0.09 K/mm3 (0.00-0.10); IMMATURE GRAN PERCENT AUTO 1 % (0-1); LYMPHOCYTES ABSOLUTE AUTO 1.46 K/mm3 (0.84-5.20); LYMPHOCYTES PERCENT AUTO 16 % (21-46); MONOCYTES ABSOLUTE AUTO 1.27 K/mm3 (0.16-1.47); MONOCYTES PERCENT AUTO 14 % (4-13); Mean Corpuscular HGB 28.6 pg (26.0-34.0); Mean Corpuscular HGB Conc 32.6 g/dL (31.5-36.5); Mean Corpuscular Volume 88 fL (80-100); Mean Platelet Volume 8.9 fL (9.1-12.4); NEUTROPHILS ABSOLUTE AUTO 5.55 K/mm3 (1.96-9.15); NEUTROPHILS PERCENT AUTO 63 % (41-73); NRBC ABSOLUTE 0.02 K/mm3 (0.00-0.02); NRBC Auto 0.2 /100 WBC (0.0-0.2); Platelet Count 497 K/mm3 (150-400); RDW Coefficient Variation 15.9 % (11.7-14.2); RDW Standard Deviation 51.4 fL (35.1-46.3); Red Blood Cell Count 3.81 M/mm3 (4.30-5.90); White Blood Cell Count 8.88 K/mm3 (4.00-11.30)
[2024-06-11 05:24] LABS: Albumin, Blood 1.6 g/dL (3.4-5.0); Albumin/Globulin Ratio 0.3 (0.8-1.8); Bilirubin, Total 0.4 mg/dL (0.1-1.0); Bun/Creatinine Ratio 17.6 (12.0-20.0); Calcium, Blood 7.6 mg/dL (8.5-10.1); Creatinine, Blood 1.08 mg/dL (0.60-1.20); Globulin, Blood 4.8 g/dL (2.2-4.0); Magnesium, Blood 1.8 mg/dL (1.6-2.4); Phosphorus, Blood 2.7 mg/dL (2.5-4.9); Potassium, Blood 3.9 mmol/L (3.5-5.5); Total Protein, Blood 6.4 g/dL (6.4-8.2)
[2024-06-11 08:54] VITALS: BP 133/88
[2024-06-11 16:10] VITALS: BP 152/81
--- NOTE | 2024-06-11 18:17 | NUR ---
SHIFT SUMMERY: NEURO: NO ACUTE CHANGES. CARDIAC: NO ACUTE CHANGES. REMAIND FREE OF ANY SP DURING SHIFT. RESP: PT ON RA. NO ACUTE CHANGES. PT WAS ABLE TO AMBULATE AROUND THE ROOM TODAY AND TAKE A SHOWER. DENIES ANY COMPLAINTS. NO SIGNIFICANT EVENTS HAPPENED DURING SHIFT. WILL CONTINUE TO CARE FOR PT TILL END OF SHIFT.
[2024-06-11 20:40] VITALS: BP 152/79
--- NOTE | 2024-06-11 21:22 | NUR ---
ASSUMED CARE PT A&O X4; SPO2 >92% ON 1LNC (PT >92% ON RA, C/O SOB W/ EXERTION/TURNING IN BED); MAP >65. PT RESTING QUIETLY AND MOVES AROUND INDEPENDENTLY. WHISPERS, STATES VOICE DOESN'T WORK.
[2024-06-12 00:25] VITALS: BP 142/76
[2024-06-12 04:17] VITALS: BP 162/78
--- NOTE | 2024-06-12 05:51 | NUR ---
SHIFT SUMMARY NO ACUTE EVENTS OVERNIGHT. PT STATED HE DID NOT SLEEP WELL, BUT NO OTHER COMPLAINTS. AMBULATES WELL INDEPENDENTLY. 1LNC FOR COMFORT, HAS DENIED SOB.
[2024-06-12 08:40] VITALS: BP 131/68
[2024-06-12] MEDS ORDERED: Calcium Carbonate 500 MG Tab Chew PO PRN (08:55)
[2024-06-12] MEDS ORDERED: Calcium Carbon500 MG PO (09:44)
[2024-06-12] MEDS ORDERED: Promod946 ML PO (09:44)
[2024-06-12] MEDS ORDERED: Amoxicillin500 MG PO (09:44)
[2024-06-12] MEDS ORDERED: NYSTATIN100000 U10 MT (11:26)
--- NOTE | 2024-06-12 12:00 | NUR ---
DISCHARGE: PT HAS BEEN CLEARED FOR DISCHARGE. HOME O2 EVALUATION COMPLETED. ALL IV ACCESS DC'd WNL. PT DRESSES SELF. PT PROVIDED W/DC PAPERWORK AND INSTRUCTIONS, V/U. PT ASSISTED FROM UNIT VIA W/C W/OUT INCIDENT.
== END 2024-06-12 13:36 | disposition home or self-care (01) | DRG 208 ==
LOC: ER 05:22 → ICUE 05:23 → ERHOLD 05:23 → ICUE 15:53 → MEDS 16:30 → ICUE 19:12 → PCU 06-10 15:28
PROVIDERS: Emergency Medicine; Internal Medicine; Internal Medicine Critical Care Medicine; ADMIT Family Medicine
PROC: 5A1945Z Respiratory Ventilation, 24-96 Consecutive Hours (ICD-10-PCS; principal; 2024-06-06)
PROC: 0BH17EZ Insertion of Endotracheal Airway into Trachea, Via Natural or Artificial Opening (ICD-10-PCS; 2024-06-06)
PROC: 5A12012 Performance of Cardiac Output, Single, Manual (ICD-10-PCS; 2024-06-06)
PROC: 3E033XZ Introduction of Vasopressor into Peripheral Vein, Percutaneous Approach (ICD-10-PCS; 2024-06-06)
PROC: 30233N1 Transfusion of Nonautologous Red Blood Cells into Peripheral Vein, Percutaneous Approach (ICD-10-PCS; 2024-06-06)
PROC: 5A09357 Assistance with Respiratory Ventilation, Less than 24 Consecutive Hours, Continuous Positive Airway Pressure (ICD-10-PCS; 2024-06-06)
PROC: 0W9D3ZZ Drainage of Pericardial Cavity, Percutaneous Approach (ICD-10-PCS; 2024-06-06)
PROC: 06HY33Z Insertion of Infusion Device into Lower Vein, Percutaneous Approach (ICD-10-PCS; 2024-06-06)
PROC: 0W9B30Z Drainage of Left Pleural Cavity with Drainage Device, Percutaneous Approach (ICD-10-PCS; 2024-06-07)
PROC: 0DH67UZ Insertion of Feeding Device into Stomach, Via Natural or Artificial Opening (ICD-10-PCS; 2024-06-07)
PROC: 04HY32Z Insertion of Monitoring Device into Lower Artery, Percutaneous Approach (ICD-10-PCS; 2024-06-07)
PROC: 4A133B1 Monitoring of Arterial Pressure, Peripheral, Percutaneous Approach (ICD-10-PCS; 2024-06-07)
PROC: 4A133J1 Monitoring of Arterial Pulse, Peripheral, Percutaneous Approach (ICD-10-PCS; 2024-06-07)
PROC: 4A133R1 Monitoring of Arterial Saturation, Peripheral, Percutaneous Approach (ICD-10-PCS; 2024-06-07)
DX: J96.01 Acute respiratory failure with hypoxia (principal); I46.8 Cardiac arrest due to other underlying condition; K72.00 Acute and subacute hepatic failure without coma; I49.01 Ventricular fibrillation; J85.0 Gangrene and necrosis of lung; J18.9 Pneumonia, unspecified organism; N17.9 Acute kidney failure, unspecified; E87.1 Hypo-osmolality and hyponatremia; C34.90 Malignant neoplasm of unspecified part of unspecified bronchus or lung; I31.31 Malignant pericardial effusion in diseases classified elsewhere; J91.0 Malignant pleural effusion; E87.29 Other acidosis; J44.0 Chronic obstructive pulmonary disease with (acute) lower respiratory infection; R64 Cachexia; K92.2 Gastrointestinal hemorrhage, unspecified; Z68.1 Body mass index [BMI] 19.9 or less, adult; Z86.14 Personal history of Methicillin resistant Staphylococcus aureus infection; I48.91 Unspecified atrial fibrillation; F41.9 Anxiety disorder, unspecified; F15.10 Other stimulant abuse, uncomplicated; E87.5 Hyperkalemia; F17.210 Nicotine dependence, cigarettes, uncomplicated; Z98.890 Other specified postprocedural states; Z79.899 Other long term (current) drug therapy; Z79.2 Long term (current) use of antibiotics
CPT/HCPCS: 31500; 33016; 36415; 36430; 36600; 36620; 51702; 71045; 71046; 71250; 75989; 76937; 80048; 80053; 80202; 82330; 82803; 82945; 82947; 83605; 83735; 83880; 83986; 84100; 84145; 84157; 84478; 84484; 85014; 85018; 85025; 85610; 85730; 86850; 86900; 86901; 86923; 87040; 87070; 87075; 87205; 88108; 88305; 88341; 88342; 89051; 93005; 93010; 93308; 93321; 94002; 94003; 94640; 94660; 94664; 94760; 94761; 96361; 96365; 96366; 96368; 96374; 96375; 96376; 99152; 99153; 99285-25; A9270; C1729; C1751; C1769; C1894; G0378; J0282; J0612; J1644; J1815; J2060; J2270; J2405; J2470; J2704; J3010; J3370; J7030; J7040; J7050; J7060; J7070; J7120; J7799; P9016; Q9967